=== PATIENT | female | born 1950 | race African-American/Black ===

== ENCOUNTER 2017-01-30 09:39 | Outpatient (CLI) | payer MEDICARE, MEDICAID ==
--- OUTSIDE RECORDS SUMMARY | 2017-01-30 09:56 | XMS | Clinical Summary ---
:1950 Author Organization [facility] Address [address] [place] [phone] Phone Care Team Providers Name Role Phone Asked, None Primary Care Provider Unavailable Allergies Not on File Current Medications Not on file Active Problems Not on file Social History Tobacco Use Types Packs/Day Years Used Date Never Assessed Sex Assigned at Date Recorded Not on file Last Filed Vital Signs Not on file Plan of Treatment Health Maintenance Due Date Last Done Comments COLONOSCOPY 1998 MAMMOGRAM 1998 ZOSTER VACCINE 2008 PNEUMOCOCCAL POLYSACCHARIDE VACCINE AGE 65 AND OVER 2013 PNEUMOCOCCAL-13 2013 INFLUENZA VACCINE 12/18/2016 Results Not on filefrom Last 3 Months Insurance Payer Benefit Plan / Group Subscriber ID Type Phone Address UHC MEDICARE UNITED/CARE IMPROVEMENT MCR [id number] [facility] [place] [id number] Medicare [place], [place] Home: [address] [phone] [place], [place] [phone]
--- NOTE | 2017-02-18 18:34 | MMO ---
BILATERAL SCREENING MAMMOGRAM: DATE: 01/30/2017 COMPARISON: No prior comparisons. Interpreted as a baseline exam. The exam is interpreted with the assistance of computer-aided detection. FINDINGS: There are scattered fibroglandular elements bilaterally. There is a partially visualized battery pa ck which obscures portions of the left breast from a cardiac pacing device limiting detail. Scatter ed benign parenchymal and vascular calcifications are present bilaterally. There are scar markers o verlying the right breast. No dominant mass, suspicious clustering of microcalcifications, or archi tectural distortion identified. IMPRESSION: BIRADS 2 - Benign findings. Annual screening mammography recommended. POS: CLAUDE
== END 2017-01-30 09:40 | disposition home or self-care (01) ==
LOC: SCSMAMMO 09:39
PROVIDERS: ATTEND Family Medicine
DX: Z12.31 Encounter for screening mammogram for malignant neoplasm of breast (principal)
CPT/HCPCS: 77067; G0202

== ENCOUNTER 2017-06-28 12:03 | Outpatient (CLI) | payer MEDICARE, MEDICAID ==
--- NOTE | 2017-06-28 13:44 | RAD ---
PORTABLE CHEST: HISTORY: Shortness of breath. COMPARISON: 05/23/2016 FINDINGS: AICD leads are unchanged. Lung alejandro appear clear. Heart size is upper normal and stable. No acut e finding or interval change noted. POS: H
--- NOTE | 2017-06-28 13:46 | RAD ---
RIGHT CALCANEUS TWO VIEWS: HISTORY: Injury to right heel with pain. FINDINGS: There are some posterior enthesophytes from the calcaneus. There is a small plantar enthesophyte fro m the mid calcaneus. No evidence of fracture. Prominent arterial calcification. IMPRESSION: 1. Enthesophytes from the calcaneus. 2. Minimal degenerative change at the calcaneal cuboid joint. 3. No evidence of acute fracture. POS: [facility]
== END 2017-06-28 12:04 | disposition home or self-care (01) ==
LOC: SCSRAD 12:03
PROVIDERS: ATTEND Family Medicine
DX: M79.671 Pain in right foot (principal); R50.9 Fever, unspecified; R05 Cough; M77.8 Other enthesopathies, not elsewhere classified
CPT/HCPCS: 71045; 71046

== ENCOUNTER 2017-07-06 15:34 | Inpatient (IN) | payer MEDICARE, MEDICAID ==
[2017-07-06 17:02] LABS: Hemoglobin 12.7 g/dL (12.0-16.0); Mean Corpuscular HGB CONC 31.8 g/dL (32.0-36.0); Mean Corpuscular Hemoglobin 29.8 pg (27.0-31.0); Mean Corpuscular Volume 93.8 fl (81.0-99.0); RBC Distribution Width 17.4 % (11.5-14.5); Red Blood Cell (RBC) Count 4.25 mill/uL (4.20-5.40); White Blood Cell (WBC) Count 22.8 thou/uL (4.8-10.8)
[2017-07-06 17:22] LABS: ALT (SGPT) 30 U/L (8-55); AST (SGOT) 21 U/L (5-34); Albumin 3.2 g/dL (3.4-4.8); Alkaline Phosphatase 172 U/L (40-150); Anion Gap 20 mmol/L (10-20); BUN (Urea Nitrogen) 30 mg/dL (9.8-20.1); Bilirubin, Total 2.4 mg/dL (0.2-1.2); Calc. Creatinine Clearance 0 mL/min (70-130); Calcium 9.9 mg/dL (7.8-10.44); Carbon Dioxide 24 mmol/L (23-31); Chloride 91 mmol/L (98-107); Estimated GFR-MDRD 11; Globulin 3.3 g/dL (2.4-3.5); Glucose 482 mg/dL (80-115); Potassium 3.2 mmol/L (3.5-5.1); Protein, Total 6.5 g/dL (6.0-8.3); Sodium 132 mmol/L (136-145)
[2017-07-06 17:23] LABS: Anisocytosis SLIGHT = 6-15 cells (100X) (0-5/hpf); Band 8 % (5-11); Hypochromia SLIGHT = 6-15 cells (100X) (0-5/hpf); Lymphocytes 2 % (21-51); MDiff Complete? YES; Mean Platelet Volume 10.6 fL (7.4-10.4); Monocytes 1 % (0-10); Neutrophil 89 % (42-75); PLT Morphology Comment Appears Decreased; Platelet Count 70 thou/uL (130-400); Polychromasia SLIGHT = 2-3 cells (100X) (0-2/hpf)
[2017-07-06 18:01] LABS: Magnesium 2.1 mg/dL (1.6-2.6)
[2017-07-06] MEDS ORDERED: Piperacillin/Tazobactam 3.375 GM in Sodium Chloride 0.9% 100 ML IVPB ONE (20:15)
--- NOTE | 2017-07-06 20:31 | RAD ---
FRONTAL VIEW CHEST: 07/06/17 COMPARISON: 06/28/17 INDICATION: Fever, chills, chronic wounds and pain. FINDINGS: There is enlargement of the cardiac silhouette and pulmonary vasculature. Cardiac pacing device is ag ain seen which does obscure portions of the left lung base. Otherwise no significant interval change. IMPRESSION: Findings indicate CHF. Correlate clinically. POS: CLAUDE
[2017-07-06 20:40] LABS: Bilirubin Moderate (Negative); Clarity TURBID (Clear); Glucose, Urine (Dipstick) Negative (Negative); Leukocyte Large (Negative); Nitrite Positive (Negative); Protein, Urine (Dipstick) 100 mg/dL (Neg-Trace); Specific Gravity, Urine 1.023 (1.002-1.036); pH, Urine 5.5 (5.0-9.0)
[2017-07-06 20:41] LABS: Bacteria/HPF 4+ HPF (None Seen)
[2017-07-06 20:42] LABS: Pathc Cast-AUWi Flag 37.79 (0-2.49); Yeast-AUWi Flag 2737.5 (0-25.0)
[2017-07-06 20:46] LABS: Blood, Urine Small (Negative); Hyaline Casts/LPF 0-3 HYALINE CAST LPF (0-3 Hyaline); RBC/HPF 0-3 HPF (0-3); Yeast-All Forms 4+ HPF (None Seen)
[2017-07-06] MEDS ORDERED: Dextrose 5% in Water 1,000 ML IV PRN (21:17)
[2017-07-06] MEDS ORDERED: Dextrose 50% Abboject 50 ML SYRINGE SLOW IVP PRN (21:17)
--- NOTE | 2017-07-06 21:54 | HP ---
CHIEF COMPLAINT: Lower extremity ulcers which are chronic and worsened. HISTORY OF PRESENT ILLNESS: Patient is a 66-year-old female who presents with worsening chronic leg wounds with increased pain over the last several days. Patient has been seen by Wound Care and has b een getting regular care for her chronic wounds. She states that over the last several days, her leg pain has gotten worse. She states she might have been feverish, but was unsure. No chills. Otherw ise, she states that her blood sugar has been elevated since this has gotten worse. PAST MEDICAL HISTORY: Patient is significant for type 2 diabetes, congestive heart failure, unspecif ied arrhythmia as well as chronic renal failure on hemodialysis Saturday, Saturday, Saturday; peripheral vascular disease. PAST SURGICAL HISTORY: Patient has had prior cholecystectomy, right arm shunt for dialysis as well a s pacemaker defibrillator placed and a prior as well as left ring finger surgery. SOCIAL HISTORY: Negative tobacco or alcohol use. REVIEW OF SYSTEMS: Please see HPI. Rest of 14-point review of system is negative. FAMILY HISTORY: Reviewed and noncontributory. MEDICATIONS: Patient is currently on allopurinol, Synthroid, Plavix, simvastatin, tramadol, folic ac id, insulin 70/30, Pepcid, albuterol, Renvela, and midodrine. LABORATORY AND X-RAY DATA: CBC, white count was 22.8, H&H 12 and 39 with platelet of 70. Sodium is 132, potassium 3.2, chloride 91, BUN 30, creatinine 4.6. UA showed large amount of leukocyte esteras e, nitrite positive. Patient's chest x-ray did not show any infiltrates. PHYSICAL EXAMINATION: VITAL SIGNS: Blood pressure 113/98, pulse 89, respirations 20. Patient satting 96% on room air. GENERAL: Patient is awake, alert, and oriented x3 in no acute distress. HEENT: Pupils round and react to light and accommodation. Extraocular muscles intact. TMs clear. No erythema in throat. NECK: No JVD, no lymphadenopathy. CARDIOVASCULAR: Regular rate and rhythm. LUNGS: Clear to auscultation bilaterally. ABDOMEN: Positive bowel sounds. Soft, nontender, nondistended. EXTREMITIES: No clubbing, cyanosis. Mild edema with ulcers noted bilaterally with tender to palpati on. NEUROLOGIC: Difficult to assess erythema due to skin color. ASSESSMENT AND PLAN: 1. Chronic lower extremity ulcers from diabetes and peripheral vascular disease, possible infection. Continue with pain control. Continue with IV antibiotics. Currently IV access is an issue and inq uiring about PICC line placement and then will continue on Zosyn and vancomycin. 2. Type 2 diabetes. Continue on insulin sliding scale for now. Continue on renal diabetic diet. 3. Hypothyroidism. Continue with Synthroid. 4. Cardiac issues. Continue to monitor. 5. Code status: Patient is FULL CODE.
[2017-07-06] MEDS ORDERED: Lidocaine 2% PF 5 ML VIAL ONE (22:03)
[2017-07-06] MEDS ORDERED: Vancomycin HCl 1 GM in Premix Bag 1 BAG IVPB SCH (23:45)
[2017-07-06] MEDS ORDERED: Vancomycin HCl 1.25 GM in Sodium Chloride 0.9% 250 ML 250 ML IVPB SCH (23:45)
[2017-07-06] MEDS ORDERED: Vancomycin HCl 750 MG in Sodium Chloride 0.9% 250 ML 250 ML IVPB SCH (23:45)
[2017-07-06] MEDS ORDERED: Vancomycin HCl 500 MG in Sodium Chloride 0.9% 100 ML IVPB SCH (23:45)
[2017-07-06] MEDS ORDERED: HOLD VANCOMYCIN FOR LEVEL >20 FS SCH (23:45)
[2017-07-06] MEDS ORDERED: Vancomycin HCl 1.5 GM in Sodium Chloride 0.9% 250 ML 300 ML IVPB SCH (23:45)
[2017-07-06] MEDS ORDERED: TAZOBACTAM IVPB PRN (23:46)
[2017-07-06] MEDS ORDERED: VANCOMYCIN IVPB PRN (23:46)
[2017-07-06] MEDS ORDERED: PIPERACILLIN IVPB PRN (23:46)
[2017-07-06] MEDS ORDERED: Piperacillin/Tazobactam 3.375 GM in Sodium Chloride 0.9% 100 ML IVPB SCH (23:59)
[2017-07-07] MEDS: HumaLOG 300 UNITS/3 ML VIAL SC PRN ×3 (00:38→12:11)
[2017-07-07] MEDS: Levothyroxine Sodium 100 MCG TAB PO SCH (05:19)
[2017-07-07] MEDS ORDERED: Dextrose 50% Abboject 50 ML SYRINGE SLOW IVP PRN (07:55)
[2017-07-07] MEDS ORDERED: Dextrose 5% in Water 1,000 ML IV PRN (07:55)
[2017-07-07] MEDS: Insulin Detemir 100 UNITS/ML 10 UNITS in Pre-Filled Syringe 1 EACH SC SCH ×2 (10:05→20:44)
[2017-07-07] MEDS: Sevelamer Carbonate 800 MG TAB PO SCH ×3 (10:06→18:59)
[2017-07-07] MEDS: Famotidine 20 MG TAB PO SCH (10:06)
[2017-07-07] MEDS: Enoxaparin Sodium 30 MG/0.3 ML SYRINGE SC SCH (10:06)
[2017-07-07 10:28] LABS: Anion Gap 17 mmol/L (10-20); BUN (Urea Nitrogen) 35 mg/dL (9.8-20.1); Calc. Creatinine Clearance 15 mL/min (70-130); Calcium 10.2 mg/dL (7.8-10.44); Carbon Dioxide 28 mmol/L (23-31); Chloride 92 mmol/L (98-107); Estimated GFR-MDRD 10; Glucose 202 mg/dL (80-115); Sodium 134 mmol/L (136-145)
[2017-07-07 10:30] LABS: Potassium 2.9 mmol/L (3.5-5.1)
[2017-07-07 10:31] LABS: Band 5 % (5-11); Hemoglobin 12.1 g/dL (12.0-16.0); Lymphocytes 4 % (21-51); MDiff Complete? YES; Mean Corpuscular HGB CONC 31.3 g/dL (32.0-36.0); Mean Corpuscular Hemoglobin 29.3 pg (27.0-31.0); Mean Corpuscular Volume 93.8 fl (81.0-99.0); Mean Platelet Volume 10.4 fL (7.4-10.4); Monocytes 3 % (0-10); Neutrophil 88 % (42-75); PLT Morphology Comment Appears Decreased; Platelet Count 44 thou/uL (130-400); RBC Distribution Width 17.2 % (11.5-14.5); Red Blood Cell (RBC) Count 4.13 mill/uL (4.20-5.40); White Blood Cell (WBC) Count 27.2 thou/uL (4.8-10.8)
[2017-07-07] MEDS ORDERED: Potassium Chloride 20 MEQ TAB PO SCH ×2 (11:00→17:00)
--- NOTE | 2017-07-07 11:03 | CON ---
DATE OF CONSULTATION: 07/07/2017 NEPHROLOGY CONSULTATION REASON FOR CONSULTATION: End-stage renal disease, on hemodialysis Saturday, Saturday, Saturday. HISTORY OF PRESENT ILLNESS: This is a very pleasant 66-year-old female who presented to the hospital for lower extremity ulcer and leg wound. The patient has a history of diabetes, denies any nausea, vomiting or chest pain. The patient tolerates dialysis Saturday, Saturday, and Saturday as well. PAST MEDICAL HISTORY: Diabetes mellitus, congestive heart failure, arrhythmia, peripheral vascular d isease, history of cholecystectomy, right AV fistula, defibrillator, , and finger surgery. SOCIAL HISTORY: No alcohol or drug use. FAMILY HISTORY: Negative for ESRD. REVIEW OF SYSTEMS: A 15-point review of systems was performed and negative except positives noted ab ove. General: Weakness-. Head: Headache-. Neck: No swelling or lumps. Nose: No epistaxis or d ischarge. Eyes: No diplopia or pain. Respiratory: Dyspnea-. Cardiovascular: Chest pain-. Gastr ointestinal: Nausea-. Genitourinary/Gynecology: Hematuria-. Musculoskeletal: No joint pain. Mable ropsychiatic Systems: No suicidal ideation. No ideation. Skin: Denies any rash or ulcer. Constit utional: No fever or chills. HOME MEDICATIONS: List reviewed. HOSPITAL MEDICATIONS: List reviewed. PHYSICAL EXAMINATION: GENERAL: Patient is awake, alert. VITAL SIGNS: Afebrile, pulse 69, breathing at 16, blood pressure 113/98. HEAD/NECK: Normocephalic. Atraumatic. EYES: EOMI. No deformity. EARS: Clear. No ulcers. NOSE: Intact. No lesions. MOUTH: Clear. No discharge. THROAT: Clear. No exudate. LUNGS: Clear. No crackles. CARDIAC: S1, S2. No rub. ABDOMEN: Benign. BS+. GENITALIA/RECTUM: Hernandez absent. BACK/EXTREMITIES: Edema 0+ Ulcer- NEUROLOGICAL: Alert and motor intact. SKIN: Rash- Bruise- LYMPHATICS: Edema- Ulcer- LABORATORY DATA: Show hemoglobin 12.7, potassium 3.6. ASSESSMENT AND RECOMMENDATIONS: 1. Stage 6 chronic kidney disease. Continue hemodialysis per schedule. 3. Hypertension, stable. 4. Anemia, stable. 5. Medications based on glomerular filtration rate are appropriate. 6. Hypokalemia. Recommend high potassium diet.
[2017-07-07] MEDS: Piperacillin/Tazobactam 2.25 GM in Sodium Chloride 0.9% 100 ML IVPB SCH (11:14)
--- NOTE | 2017-07-07 16:55 | PDOC.PN ---
- Subjective Encounter Start Date: 07/07/17 Encounter Start Time: 10:55 - Objective Resuscitation Status: Resuscitation Status FULL:Full Resuscitation Vital Signs & Weight: Vital Signs (12 hours) Temp Pulse Resp BP Pulse Ox 07/07/17 10:47 97.5 F L 82 16 102/72 100 07/07/17 07:55 97.6 F 80 18 112/73 95 Weight Weight 206 lb 6.4 oz I&O: 07/06/17 07/07/17 07/08/17 06:59 06:59 06:59 Intake Total 985 Balance 985 Result Diagrams: 07/07/17 10:00 07/07/17 10:00 Additional Labs: Accuchecks 07/07/17 07/07/17 07/07/17 11:08 05:08 00:14 POC Glucose 172 H 413 H 429 H Phys Exam - Physical Examination HEENT: PERRLA, moist MMs Neck: no nodes Respiratory: no wheezing Cardiovascular: RRR, no significant murmur Gastrointestinal: soft, non-tender Musculoskeletal: edema present (lower ext, right foot appears more dark than left, dressing to link and right heel area) Neurological: non-focal, normal sensation Dx/Plan (1) Sepsis Code(s): A41.9 - SEPSIS, UNSPECIFIED ORGANISM Status: Acute Plan: will continue iv zosyn and vanco, blood cx no growth so far (2) Cellulitis Code(s): L03.90 - CELLULITIS, UNSPECIFIED Status: Acute Plan: wound care to change pt's link dressing. i was unable to see it today. will look at the wound in am (3) Leukocytosis Code(s): D72.829 - ELEVATED WHITE BLOOD CELL COUNT, UNSPECIFIED Status: Acute Plan: continue to monitor, if persist will need MRi to rule out any osteo (4) Hypokalemia Code(s): E87.6 - HYPOKALEMIA Status: Acute Plan: will replace and check k later today (5) ESRD (end stage renal disease) Code(s): N18.6 - END STAGE RENAL DISEASE Status: Acute (6) ESRD (end stage renal disease) on dialysis Code(s): N18.6 - END STAGE RENAL DISEASE; Z99.2 - DEPENDENCE ON RENAL DIALYSIS Status: Acute Plan: per nephrology - Plan * .
[2017-07-07] MEDS ORDERED: Potassium Chloride 20 MEQ/100 ML PREMIX BAG IVPB SCH (17:30)
[2017-07-07] MEDS: Amiodarone 200 MG TAB PO SCH (20:44)
[2017-07-07] MEDS: Simvastatin 5 MG TAB PO SCH (20:44)
[2017-07-07 22:35] LABS: Anion Gap 19 mmol/L (10-20); BUN (Urea Nitrogen) 40 mg/dL (9.8-20.1); Calc. Creatinine Clearance 15 mL/min (70-130); Calcium 9.9 mg/dL (7.8-10.44); Carbon Dioxide 28 mmol/L (23-31); Chloride 93 mmol/L (98-107); Estimated GFR-MDRD 9; Glucose 82 mg/dL (80-115); Potassium 3.6 mmol/L (3.5-5.1); Sodium 136 mmol/L (136-145)
[2017-07-08] MEDS: Piperacillin/Tazobactam 2.25 GM in Sodium Chloride 0.9% 100 ML IVPB SCH ×3 (00:59→22:48)
[2017-07-08 04:53] LABS: Vancomycin, Random 15.3 ug/mL (See Comment)
[2017-07-08 04:54] LABS: Anion Gap 20 mmol/L (10-20); BUN (Urea Nitrogen) 42 mg/dL (9.8-20.1); Calc. Creatinine Clearance 14 mL/min (70-130); Calcium 9.9 mg/dL (7.8-10.44); Carbon Dioxide 25 mmol/L (23-31); Chloride 93 mmol/L (98-107); Estimated GFR-MDRD 9; Potassium 3.8 mmol/L (3.5-5.1); Sodium 134 mmol/L (136-145)
[2017-07-08 04:59] LABS: Band 12 % (5-11); Hemoglobin 12.1 g/dL (12.0-16.0); Lymphocytes 1 % (21-51); MDiff Complete? YES; Mean Corpuscular HGB CONC 31.7 g/dL (32.0-36.0); Mean Corpuscular Hemoglobin 29.7 pg (27.0-31.0); Mean Corpuscular Volume 93.9 fl (81.0-99.0); Mean Platelet Volume 12.3 fL (7.4-10.4); Monocytes 3 % (0-10); Neutrophil 84 % (42-75); PLT Morphology Comment Appears Decreased; Platelet Count 38 thou/uL (130-400); RBC Distribution Width 17.1 % (11.5-14.5); Red Blood Cell (RBC) Count 4.08 mill/uL (4.20-5.40); White Blood Cell (WBC) Count 21.6 thou/uL (4.8-10.8)
[2017-07-08 05:01] LABS: Glucose 57 mg/dL (80-115)
[2017-07-08] MEDS: Levothyroxine Sodium 100 MCG TAB PO SCH (06:39)
[2017-07-08] MEDS: Insulin Detemir 100 UNITS/ML 10 UNITS in Pre-Filled Syringe 1 EACH SC SCH ×2 (07:15→22:52)
[2017-07-08] MEDS: Sevelamer Carbonate 800 MG TAB PO SCH ×4 (08:14→16:22)
[2017-07-08] MEDS: Famotidine 20 MG TAB PO SCH ×2 (08:15→08:22)
[2017-07-08] MEDS: Enoxaparin Sodium 30 MG/0.3 ML SYRINGE SC SCH (08:19)
--- NOTE | 2017-07-08 11:07 | RAD ---
RIGHT LEG 2 VIEWS: HISTORY: Abernathy ulcers, right leg pain. FINDINGS: The right tibia and fibula are intact. No bony destruction or periosteal reaciton is seen. Vascular calcifications are present. IMPRESSION: No radiographic evidence of osteomyelitis. POS: CLAUDEH
--- NOTE | 2017-07-08 11:08 | RAD ---
LEFT LEG TWO VIEWS: HISTORY: Abernathy ulcers. Left leg pain. FINDINGS: The left tibia and fibula are intact. Vascular calcifications are present. No bony destruction or p eriosteal reaction is identified. IMPRESSION: No radiographic evidence of osteomyelitis. POS: RUDI
[2017-07-08 14:12] LABS: HBSAg Index 0.21 S/CO (0-0.99); Hep B Surf Ag Non-Reactive S/CO (NonReactive)
[2017-07-08] MEDS ORDERED: diphenhydrAMINE 25 MG CAP PO PRN (15:16)
--- NOTE | 2017-07-08 17:27 | PRG ---
DATE OF SERVICE: 07/08/2017 SUBJECTIVE: Patient was seen and examined at bedside and overnight events noted. Patient denies any shortness of breath or chest pain or palpitation. No history of nausea or vomiting or diarrhea or f ever or chills or cramps. OBJECTIVE: GENERAL: This is an obese female in no apparent distress. VITAL SIGNS: Temperature 97.6, pulse 94, respiratory rate 18, blood pressure 94/65. HEENT: Atraumatic, normocephalic. Oral mucosa is moist. NECK: Supple. CARDIOVASCULAR: S1, S2 heard. Rate and rhythm regular. RESPIRATORY: Clear to auscultation. GASTROINTESTINAL: Abdomen is soft. MUSCULOSKELETAL: No tenderness. No edema. DERMATOLOGIC: No skin rash. NEUROLOGIC: Alert and awake and oriented x3. No focal neurologic deficits. Moving all the extremiti es. PSYCHIATRIC: Mood and affect normal. LABORATORY DATA: Potassium is 3.8, BUN 42, creatinine is 5.5. ASSESSMENT AND PLAN: 1. End-stage renal disease, continue on hemodialysis as tolerated. 2. Chronic nonhealing leg wounds. Follow with ID. I agree with MRI and further vascular evaluation . 3. Hypertension, stable. 4. Anemia. 5. Hyperkalemia, stable. Plan is to continue on dialysis as tolerated. The patient was seen during dialysis today and is tole rating well. We will follow up along with ID for further recommendations. Continue antibiotics as t olerated.
--- NOTE | 2017-07-08 18:30 | PDOC.PN ---
- Subjective Encounter Start Date: 07/08/17 Encounter Start Time: 09:00 Subjective: pt up in bed has pain to her right and left foot - Objective Resuscitation Status: Resuscitation Status FULL:Full Resuscitation Vital Signs & Weight: Vital Signs (12 hours) Temp Pulse Resp BP Pulse Ox 07/08/17 13:43 97.6 F 94 20 94/65 93 L 07/08/17 09:37 94 16 93 L 07/08/17 08:00 97.4 F L 94 16 122/72 93 L 07/08/17 06:39 97 18 93 L Weight Admit Weight 203 lb 9.6 oz Weight 205 lb 12.8 oz I&O: 07/07/17 07/08/17 07/09/17 06:59 06:59 06:59 Intake Total 985 1190 1000 Output Total 0 Balance 985 1190 1000 Result Diagrams: 07/08/17 03:39 07/08/17 03:39 Additional Labs: Accuchecks 07/08/17 07/08/17 07/08/17 11:59 10:09 06:39 POC Glucose 204 H 201 H 134 H 07/08/17 07/07/17 07/07/17 04:59 21:11 19:47 POC Glucose 45 L* 77 67 L Phys Exam - Physical Examination HEENT: PERRLA, moist MMs Neck: no nodes Respiratory: no wheezing, no rales Cardiovascular: RRR, no significant murmur Musculoskeletal: edema present (pt has edema to both lower ext) Psychiatric: normal affect Skin: no rash (purlent drainage from right heel, healed ulcer to right link, left posterior link looks like eschar with skin loss. ) Dx/Plan (1) Sepsis Code(s): A41.9 - SEPSIS, UNSPECIFIED ORGANISM Status: Acute Plan: pt's iv access was off and had not received abx overnight. she received abx in dialysis. she now has a peripheral line. pt is on vanco and zosyn. id is consulted. (2) Cellulitis Code(s): L03.90 - CELLULITIS, UNSPECIFIED Status: Acute Plan: pt has significant pressure wounds vs diabetic ulcers. foul smelling drainage from right heel wound. wound care on board. will get arterial Doppler to check for flow. (3) Leukocytosis Code(s): D72.829 - ELEVATED WHITE BLOOD CELL COUNT, UNSPECIFIED Status: Acute Plan: still persist. pt may need Mri to rule out osteo (4) Hypokalemia Code(s): E87.6 - HYPOKALEMIA Status: Acute (5) ESRD (end stage renal disease) Code(s): N18.6 - END STAGE RENAL DISEASE Status: Acute Plan: per nephrology (6) ESRD (end stage renal disease) on dialysis Code(s): N18.6 - END STAGE RENAL DISEASE; Z99.2 - DEPENDENCE ON RENAL DIALYSIS Status: Acute - Plan * .
[2017-07-08] MEDS: Amiodarone 200 MG TAB PO SCH (22:52)
[2017-07-08] MEDS: Simvastatin 5 MG TAB PO SCH (22:53)
[2017-07-09] MEDS: Levothyroxine Sodium 100 MCG TAB PO SCH (06:26)
[2017-07-09] MEDS: HumaLOG 300 UNITS/3 ML VIAL SC PRN (06:42)
[2017-07-09] MEDS: Acetaminophen 325 MG TAB PO PRN (08:17)
[2017-07-09] MEDS: Enoxaparin Sodium 30 MG/0.3 ML SYRINGE SC SCH (08:17)
[2017-07-09] MEDS: Sevelamer Carbonate 800 MG TAB PO SCH ×3 (08:17→16:55)
[2017-07-09] MEDS: Insulin Detemir 100 UNITS/ML 10 UNITS in Pre-Filled Syringe 1 EACH SC SCH ×2 (08:25→21:45)
[2017-07-09] MEDS: Famotidine 20 MG TAB PO SCH (08:25)
[2017-07-09 10:10] LABS: Hemoglobin 11.4 g/dL (12.0-16.0); Mean Corpuscular HGB CONC 31.2 g/dL (32.0-36.0); Mean Corpuscular Hemoglobin 29.3 pg (27.0-31.0); Mean Corpuscular Volume 93.8 fl (81.0-99.0); Mean Platelet Volume 12.1 fL (7.4-10.4); Platelet Count 33 thou/uL (130-400); RBC Distribution Width 17.1 % (11.5-14.5); Red Blood Cell (RBC) Count 3.89 mill/uL (4.20-5.40); White Blood Cell (WBC) Count 21.6 thou/uL (4.8-10.8)
[2017-07-09 10:23] LABS: Anion Gap 18 mmol/L (10-20); BUN (Urea Nitrogen) 27 mg/dL (9.8-20.1); Calc. Creatinine Clearance 19 mL/min (70-130); Calcium 9.4 mg/dL (7.8-10.44); Carbon Dioxide 22 mmol/L (23-31); Chloride 98 mmol/L (98-107); Estimated GFR-MDRD 13; Glucose 230 mg/dL (80-115); Potassium 3.9 mmol/L (3.5-5.1); Sodium 134 mmol/L (136-145)
[2017-07-09 10:24] LABS: Hypochromia SLIGHT = 6-15 cells (100X) (0-5/hpf); MDiff Complete? YES; PLT Morphology Comment Appears Decreased; Polychromasia SLIGHT = 2-3 cells (100X) (0-2/hpf); Target Cells SLIGHT = 2-5 cells (100X) (0-1/hpf)
[2017-07-09] MEDS: Piperacillin/Tazobactam 2.25 GM in Sodium Chloride 0.9% 100 ML IVPB SCH ×2 (12:30→23:53)
[2017-07-09] MEDS: oxyCODONE 5 MG TAB PO PRN (12:44)
--- NOTE | 2017-07-09 14:26 | PRG ---
DATE OF SERVICE: 07/09/2017 SUBJECTIVE: Patient was seen and examined at bedside and overnight events noted. Patient denies any shortness of breath or chest pain or palpitation. No history of nausea or vomitin g or diarrhea or fever or chills or cramps. OBJECTIVE: GENERAL: This is a well-built female, female, in no apparent distress. VITAL SIGNS: Temperature 98.3, pulse 92, respiratory rate 16, blood pressure 104/71. HEENT: Atraumatic, normocephalic. Oral mucosa is moist NECK: Supple. CARDIOVASCULAR: S1 and S2 heard. Rate and rhythm regular. RESPIRATORY: Clear to auscultation. GASTROINTESTINAL: Abdomen is soft. MUSCULOSKELETAL: No tenderness. No edema. DERMATOLOGIC: No skin rash. NEUROLOGIC: Alert and awake and oriented X3, No focal neurologic deficits. Moving all the extremitie s. PSYCHIATRIC: Mood and affect normal. LABORATORY DATA: Potassium is 3.9, BUN 27, creatinine is 4.0. ASSESSMENT AND PLAN: 1. End-stage renal disease, continue on hemodialysis as tolerated, Saturday, Saturday, and Saturday. 2. Chronic nonhealing wounds. 3. Hypertension. 4. Anemia. 5. Hyperkalemia, stable. Plan is to continue dialysis Saturday, Saturday, and Saturday. Follow up with ID, continue antibiotics. White count seems to be better today. We will follow.
--- NOTE | 2017-07-09 15:42 | PDOC.PN ---
- Subjective Encounter Start Date: 07/09/17 Encounter Start Time: 10:00 Subjective: pt up in bed no complains - Objective Resuscitation Status: Resuscitation Status FULL:Full Resuscitation Vital Signs & Weight: Vital Signs (12 hours) Temp Pulse Resp BP Pulse Ox 07/09/17 14:03 92 16 92 L 07/09/17 08:00 98.3 F 92 16 104/71 95 07/09/17 06:26 72 16 Weight Admit Weight 203 lb 9.6 oz Weight 203 lb 0.732 oz I&O: 07/08/17 07/09/17 07/10/17 06:59 06:59 06:59 Intake Total 1190 1200 Output Total 0 Balance 1190 1200 Result Diagrams: 07/09/17 09:58 07/09/17 09:58 Additional Labs: Accuchecks 07/09/17 07/09/17 07/08/17 11:24 04:55 20:23 POC Glucose 245 H 253 H 142 H Phys Exam - Physical Examination HEENT: PERRLA, moist MMs Neck: no nodes Respiratory: no wheezing, no rales Cardiovascular: RRR, no significant murmur Gastrointestinal: soft, non-tender Musculoskeletal: edema present (right foot is dark with diminished pulses, very painful to touch, right heel has continue drainage of foul smelling purlent discharge) Neurological: non-focal, normal sensation Dx/Plan (1) Sepsis Code(s): A41.9 - SEPSIS, UNSPECIFIED ORGANISM Status: Acute Plan: most likely form her wounds. will get MRI of her right foot. pt most likely has significant vascular disease. possible will need debridement of the wound also since she continues to have persistent leukocytes. pt on vanco and zosyn (2) Cellulitis Code(s): L03.90 - CELLULITIS, UNSPECIFIED Status: Acute Plan: pt has multiple wounds. will continue abx, (3) Leukocytosis Code(s): D72.829 - ELEVATED WHITE BLOOD CELL COUNT, UNSPECIFIED Status: Acute Plan: persistent possible osteo? will get MRI (4) Hypokalemia Code(s): E87.6 - HYPOKALEMIA Status: Acute Plan: stable (5) ESRD (end stage renal disease) Code(s): N18.6 - END STAGE RENAL DISEASE Status: Acute Plan: dialysis (6) ESRD (end stage renal disease) on dialysis Code(s): N18.6 - END STAGE RENAL DISEASE; Z99.2 - DEPENDENCE ON RENAL DIALYSIS Status: Acute - Plan * .
--- NOTE | 2017-07-09 19:26 | CON ---
DATE OF ADMISSION: 07/06/2017 DATE OF CONSULTATION: 07/06/2017 HISTORY OF PRESENT ILLNESS: Ms. Young is a 66-year-old woman who has multiple chronic medical probl ems including end-stage renal disease on hemodialysis, chronic lower extremity ulcerations, diabetes mellitus, and congestive heart failure. She presented with worsening heel ulcerations. The right le g is worse than the left. On entering the room, there is a foul odor to the whole room. She has had fever at home. Her white blood cell count is currently 21.6, which has not changed since admission. Reports through staff that she had a recent angioplasty somewhere -- it was not here in this instit ution and she is continue to have slowly festering heel wounds. Current temperature is 98.3. She richardson s been on vancomycin and Zosyn since admission. PAST MEDICAL HISTORY: 1. End-stage renal disease on hemodialysis. 2. Peripheral vascular disease. 3. Diabetes mellitus. 4. Congestive heart failure. 5. History of arrhythmia. PAST SURGICAL HISTORY: 1. Cholecystectomy. 2. Right arm fistula. 3. Pacemaker/defibrillator placement. 4. . 5. Left hand surgery. SOCIAL HISTORY: She does not use tobacco. REVIEW OF SYSTEMS: Not performed due to the patient's mental status. PHYSICAL EXAMINATION: GENERAL: This is a morbidly obese woman, resting, sitting at approximately 45 degrees in bed. My at tempts at laying her flat were unsuccessful as she immediately stated that she got short of breath wh en I tried to lay her down. LUNGS: Fairly clear. HEART: Rhythm is regular without significant murmur. ABDOMEN: Obese with a large panniculus. VASCULAR: I cannot palpate any pulses in her groin or popliteal arteries. She has a good bilateral Doppler signal in her popliteal arteries. Dorsalis pedis and posterior tibial arteries are not doppl erable. She has healed ulcerations bilaterally that are dressed with a foul odor. DIAGNOSTIC STUDIES: I have reviewed her plain film x-ray showing a calcified arterial tree that you can trace the whole arterial tree without difficulty. ASSESSMENT AND PLAN: This unfortunate 66-year-old woman with diabetes, end-stage renal disease and p eripheral vascular disease with ulcerations of both heels. I do not feel that she has any hopes that reconstruction with either endovascularly or with open surgical intervention of her peripheral vascu lar disease. She more than likely will come to amputation.
[2017-07-09] MEDS: Simvastatin 5 MG TAB PO SCH (21:45)
[2017-07-09] MEDS: Amiodarone 200 MG TAB PO SCH (21:45)
[2017-07-10] MEDS: Acetaminophen 325 MG TAB PO PRN ×2 (03:57→11:41)
[2017-07-10] MEDS: Levothyroxine Sodium 100 MCG TAB PO SCH (06:01)
[2017-07-10 06:13] LABS: Anion Gap 24 mmol/L (10-20); BUN (Urea Nitrogen) 35 mg/dL (9.8-20.1); Calc. Creatinine Clearance 17 mL/min (70-130); Calcium 9.7 mg/dL (7.8-10.44); Carbon Dioxide 19 mmol/L (23-31); Chloride 96 mmol/L (98-107); Estimated GFR-MDRD 11; Glucose 228 mg/dL (80-115); Potassium 4.4 mmol/L (3.5-5.1); Sodium 135 mmol/L (136-145)
[2017-07-10 06:38] LABS: Anisocytosis SLIGHT = 6-15 cells (100X) (0-5/hpf); Band 2 % (5-11); Hemoglobin 11.6 g/dL (12.0-16.0); Lymphocytes 4 % (21-51); MDiff Complete? YES; Mean Corpuscular HGB CONC 30.7 g/dL (32.0-36.0); Mean Corpuscular Hemoglobin 29.2 pg (27.0-31.0); Mean Corpuscular Volume 95.3 fl (81.0-99.0); Mean Platelet Volume 12.5 fL (7.4-10.4); Monocytes 2 % (0-10); Neutrophil 92 % (42-75); PLT Morphology Comment Appears Decreased; Platelet Count 32 thou/uL (130-400); RBC Distribution Width 17.3 % (11.5-14.5); Red Blood Cell (RBC) Count 3.97 mill/uL (4.20-5.40); Target Cells SLIGHT = 2-5 cells (100X) (0-1/hpf); White Blood Cell (WBC) Count 19.5 thou/uL (4.8-10.8)
[2017-07-10] MEDS: ALPRAZolam 0.5 MG TAB PO SCH (08:34)
[2017-07-10] MEDS: Famotidine 20 MG TAB PO SCH (08:34)
[2017-07-10] MEDS: Sevelamer Carbonate 800 MG TAB PO SCH ×3 (08:41→20:51)
[2017-07-10] MEDS ORDERED: Insulin Detemir 100 UNITS/ML 15 UNITS in Pre-Filled Syringe 1 EACH SC SCH (09:00)
[2017-07-10] MEDS ORDERED: Heparin 10,000 UNITS/ 10 ML VIAL ONE (10:00)
[2017-07-10] MEDS: Insulin Detemir 100 UNITS/ML 10 UNITS in Pre-Filled Syringe 1 EACH SC SCH ×2 (11:09→20:52)
[2017-07-10] MEDS: oxyCODONE 5 MG TAB PO PRN (11:44)
--- NOTE | 2017-07-10 12:35 | RAD ---
RIGHT FOOT TWO VIEWS: History: 66-year-old female with history of heel ulcer with clinical concern for osteomyelitis. FINDINGS/IMPRESSION: Two view examination of the foot demonstrates some calcaneal plantar and Achilles enthesophytes. Exte nsive vascular calcifications. Minimal diffuse soft tissue swelling. No evidence for acute fracture o r dislocation. No evidence for overt bony erosion or destructive changes. If there is clinical concer n for osteomyelitis, consider follow up MRI for study further assessment. POS: [facility]UD[facility]
[2017-07-10 13:15] LABS: Vancomycin, Random 11.8 ug/mL (See Comment)
--- NOTE | 2017-07-10 13:49 | PDOC.PN ---
- Subjective Encounter Start Date: 07/10/17 Encounter Start Time: 10:45 Subjective: pt up in bed still has a lot of pain to her lower ext - Objective Resuscitation Status: Resuscitation Status FULL:Full Resuscitation Vital Signs & Weight: Vital Signs (12 hours) Temp Pulse Resp BP Pulse Ox 07/10/17 10:27 93 14 07/10/17 08:00 97.6 F 93 22 H 98 07/10/17 07:16 97.6 F 93 22 H 132/87 98 07/10/17 07:06 80 18 07/10/17 02:19 88 18 95 Weight Admit Weight 203 lb 9.6 oz Weight 204 lb 5.896 oz I&O: 07/09/17 07/10/17 07/11/17 06:59 06:59 06:59 Intake Total 1200 1330 Balance 1200 1330 Result Diagrams: 07/10/17 04:35 07/10/17 04:35 Additional Labs: Accuchecks 07/10/17 07/10/17 07/09/17 11:31 04:38 19:34 POC Glucose 312 H 243 H 201 H 07/09/17 15:51 POC Glucose 183 H Phys Exam - Physical Examination HEENT: PERRLA, moist MMs Neck: no nodes Respiratory: no wheezing (mild rales to bases) Cardiovascular: RRR, no significant murmur Gastrointestinal: soft, non-tender Musculoskeletal: edema present (right foot appears dark, warm but very painful. she also has other ulcers) Neurological: non-focal Skin: no rash Dx/Plan (1) Sepsis Code(s): A41.9 - SEPSIS, UNSPECIFIED ORGANISM Status: Acute Plan: most likely due to he lower ext cellulites. (2) Cellulitis Code(s): L03.90 - CELLULITIS, UNSPECIFIED Status: Acute Plan: pt's right foot appears dark, CV surgeon consulted no intervention possible amputation. MRI unable to perform due to pt having a AICD. xray no indication of osteo. ID on board. pt on vanco/zosyn. pt has a lot of pain will start neurontin. (3) Leukocytosis Code(s): D72.829 - ELEVATED WHITE BLOOD CELL COUNT, UNSPECIFIED Status: Acute Plan: improving slowly (4) Hypokalemia Code(s): E87.6 - HYPOKALEMIA Status: Acute Plan: resolved (5) ESRD (end stage renal disease) Code(s): N18.6 - END STAGE RENAL DISEASE Status: Acute Plan: per nephrology (6) ESRD (end stage renal disease) on dialysis Code(s): N18.6 - END STAGE RENAL DISEASE; Z99.2 - DEPENDENCE ON RENAL DIALYSIS Status: Acute (7) Thrombocytopenia Code(s): D69.6 - THROMBOCYTOPENIA, UNSPECIFIED Status: Acute Plan: low, possible due to sepsis Comment: new possbile due to sepsis. unable to put pt on dvt ppx due to low platelets. No scd due to severe leg pain. - Plan * .
--- NOTE | 2017-07-10 16:03 | ULT ---
LOWER EXTREMITY ARTERIAL EVALUATION USING DOPPLER WAVEFORM AND SEGMENTAL LIMB PRESSURES: Examination of the right leg reveals normal Doppler waveforms at the femoral and popliteal level. Th ere are no waveforms that could be done in the lower extremity below that level. Left lower extremit y demonstrates fairly normal femoral and popliteal waveforms with monophasic waveforms below the knee . This study demonstrates severe peripheral vascular disease in the left leg below the knee. Right leg could not be evaluated below the knee. POS: CLAUDE
[2017-07-10] MEDS: Piperacillin/Tazobactam 2.25 GM in Sodium Chloride 0.9% 100 ML IVPB SCH (17:59)
[2017-07-10] MEDS: Nystatin Powder 15 GM BOT TOP SCH (20:51)
[2017-07-10] MEDS: Amiodarone 200 MG TAB PO SCH (20:51)
[2017-07-10] MEDS: Simvastatin 5 MG TAB PO SCH (20:51)
[2017-07-10] MEDS ORDERED: Gabapentin 300 MG CAP PO SCH (21:00)
--- NOTE | 2017-07-10 23:51 | PRG ---
DATE OF SERVICE: 07/10/2017 SUBJECTIVE: Patient was seen and examined at bedside and overnight events noted. Patient denies shortness of breath or cramps or chest pain or palpitation. No Nausea or vomiting or diarrhea or fever or chills. PHYSICAL EXAMINATION: GENERAL: This is a well-built female in no apparent distress. VITAL SIGNS: Temperature 97.6, pulse 92, respiratory rate , blood pressure 132/87. Musculoskeletal : No tenderness, No edema HEENT: Atraumatic normocephalic Neck: Supple Cardiovascular: S1S2 heard, Rate and rhythm regular Respiratory: Clear to auscultation Gastrointestinal: Abdomen is soft Dermatologic : No skin rash Neurologic: Alert and awake and oriented X3 No focal neurologic deficits. Moving all the extremities. Psychiatric: Mood and affect normal LABORATORY DATA: Potassium is 4.4, BUN is 35, creatinine is 4.6. Hemoglobin is 11.6. ASSESSMENT AND PLAN: 1. End-stage renal disease on hemodialysis. Plan is to continue on dialysis Saturday, Saturday, and Saturday. 2. Chronic, nonhealing ulcer. Follow with ID and continue on antibiotics. 3. Leukocytosis, better. 4. Hypertension. Remove fluid with dialysis. 5. Anemia. 6. Edema, controlled. Plan is to continue on dialysis Saturday, Saturday, and Saturday as tolerated. We will follow. ADAD
[2017-07-11] MEDS: Piperacillin/Tazobactam 2.25 GM in Sodium Chloride 0.9% 100 ML IVPB SCH ×2 (05:27→17:31)
[2017-07-11] MEDS: Levothyroxine Sodium 100 MCG TAB PO SCH (05:33)
[2017-07-11 09:36] LABS: #Eosinphils 0.1 thou/uL (0.0-0.7); #Lymphocytes 1.4 thou/uL (1.20-3.40); #Monocytes 1.2 thou/uL (0.11-0.59); #Neutrophils 15.4 thou/uL (1.40-6.50); %Basophils 0.1 % (0.0-1.0); %Eosinophils 0.4 % (0.0-10.0); %Lymphocytes 7.6 % (21.0-51.0); %Monocytes 6.8 % (0.0-10.0); Hemoglobin 12.6 g/dL (12.0-16.0); Mean Corpuscular HGB CONC 32.4 g/dL (32.0-36.0); Mean Corpuscular Hemoglobin 30.2 pg (27.0-31.0); Mean Corpuscular Volume 93.4 fl (81.0-99.0); Mean Platelet Volume 11.9 fL (7.4-10.4); Platelet Count 36 thou/uL (130-400); RBC Distribution Width 17.3 % (11.5-14.5); Red Blood Cell (RBC) Count 4.16 mill/uL (4.20-5.40); White Blood Cell (WBC) Count 18.2 thou/uL (4.8-10.8)
[2017-07-11 09:46] LABS: ALT (SGPT) 29 U/L (8-55); AST (SGOT) 19 U/L (5-34); Alkaline Phosphatase 154 U/L (40-150); Anion Gap 16 mmol/L (10-20); BUN (Urea Nitrogen) 22 mg/dL (9.8-20.1); Bilirubin, Total 2.2 mg/dL (0.2-1.2); Calc. Creatinine Clearance 25 mL/min (70-130); Calcium 9.9 mg/dL (7.8-10.44); Carbon Dioxide 27 mmol/L (23-31); Chloride 97 mmol/L (98-107); Estimated GFR-MDRD 17; Globulin 3.6 g/dL (2.4-3.5); Glucose 140 mg/dL (80-115); Potassium 4.1 mmol/L (3.5-5.1); Protein, Total 6.6 g/dL (6.0-8.3); Sodium 136 mmol/L (136-145)
[2017-07-11] MEDS: Sevelamer Carbonate 800 MG TAB PO SCH ×3 (10:12→18:14)
[2017-07-11] MEDS: Famotidine 20 MG TAB PO SCH (10:13)
[2017-07-11] MEDS: Nystatin Powder 15 GM BOT TOP SCH ×2 (10:13→20:17)
[2017-07-11] MEDS: Insulin Detemir 100 UNITS/ML 10 UNITS in Pre-Filled Syringe 1 EACH SC SCH ×2 (10:13→23:02)
--- NOTE | 2017-07-11 10:37 | PDOC.PN ---
- Subjective Encounter Start Date: 07/11/17 Encounter Start Time: 09:45 Patient is seen today, was called for Code Green as pt became unresponse with hypoxia and poor mentation, Patient had Right facial droop so a CT weas Done was kamala, patient family was in room, Pt had low Blood pressure with systolic < 90 and 500ml fluid bolus was given, Patient remained altered, Discussed with Family and Daughters, explained patient baseline condition is poor from Sepsis duie to non healing leg wound and ESRD on HD and Chronic CHF with AICD, if she codes her resustation outcome will be very poor and suggested pt to be kept comfortable and DNR, family ( and Daughters) agreed to it. Time spent was 45 min with family discussion on Code status and patient care. - Objective Resuscitation Status: Resuscitation Status DNR:Do Not Resuscitate MAR Reviewed: Yes Vital Signs & Weight: Vital Signs (12 hours) Temp Pulse Resp BP Pulse Ox 07/11/17 08:00 98.4 F 93 20 110/71 98 07/11/17 07:53 97.6 F 93 18 07/11/17 01:34 93 18 96 07/11/17 00:04 93 18 98 Weight Admit Weight 203 lb 9.6 oz Weight 206 lb 12.697 oz I&O: 07/10/17 07/11/17 07/12/17 06:59 06:59 06:59 Intake Total 1330 250 Balance 1330 250 Result Diagrams: 07/11/17 09:09 07/11/17 09:09 Additional Labs: Accuchecks 07/11/17 07/10/17 07/10/17 04:39 19:42 11:31 POC Glucose 163 H 155 H 312 H Radiology Reviewed by me: Yes (discussed with radiology) Phys Exam - Physical Examination HEENT: PERRLA, moist MMs Neck: no nodes, no JVD Respiratory: wheezing present Cardiovascular: RRR, no significant murmur Gastrointestinal: soft, non-tender Musculoskeletal: no edema, pulses present (diminshed low volume) Neurological: non-focal, normal sensation Lymphatic: no nodes Skin: no rash (has icterus noticed) Dx/Plan (1) Acute respiratory failure with hypoxia Code(s): J96.01 - ACUTE RESPIRATORY FAILURE WITH HYPOXIA Status: Acute Comment: Will continue on Rebreather, continue to on nasal canula to keep Sats > 92%, No intubation, can try Bipap if worsening SOB. (2) Septic shock Code(s): A41.9 - SEPSIS, UNSPECIFIED ORGANISM; R65.21 - SEVERE SEPSIS WITH SEPTIC SHOCK Status: Acute Comment: Pt has worsening BP, start FLuid bolus now, BP responded, Will continue with IV antibiotics. (3) TIA (transient ischemic attack) Status: Acute Comment: CT head negative for intracrtneal bleed, cannot do MRi due to pacemeaker, will do neurochecks. [place] monitor, Will start pt on Aspirn , Statin. (4) Cellulitis Code(s): L03.90 - CELLULITIS, UNSPECIFIED Status: Acute Comment: continue IV antibiotics. (5) ESRD (end stage renal disease) on dialysis Code(s): N18.6 - END STAGE RENAL DISEASE; Z99.2 - DEPENDENCE ON RENAL DIALYSIS Status: Acute Comment: continueon HD as BP tolerates. (6) Thrombocytopenia Code(s): D69.6 - THROMBOCYTOPENIA, UNSPECIFIED Status: Acute Comment: new possbile due to sepsis. unable to put pt on dvt ppx due to low platelets. No scd due to severe leg pain. - Plan cont current plan of care, plan discussed w/ family, continue antibiotics, PT/OT , social services counselor, speech therapy, respiratory therapy, incentive spirometry, DVT proph w/heparin * . - Discharge Day Encounter end time: 10:40 Review of Systems - Review of Systems Constitutional: weakness, malaise. negative: fever, chills, sweats, other Other: unable to get ROS as pt is disoriented. - Medications/Allergies Allergies/Adverse Reactions: Allergies Allergy/AdvReac Type Severity Reaction Status Date / Time ciprofloxacin [From Cipro] Allergy Hives Verified 09/12/16 12:48 codeine Allergy tachycardia Verified 09/12/16 12:48 ,hallucinat ions Sulfa (Sulfonamide Allergy Hives Verified 09/12/16 12:48 Antibiotics) sulfamethoxazole Allergy Hives Verified 09/12/16 12:48 [From Bactrim] trimethoprim [From Bactrim] Allergy Hives Verified 09/12/16 12:48 Medications: Current Medications Acetaminophen (Tylenol) 650 mg PO Q4H PRN PRN Reason: Headache/Fever or Pain Last Admin: 07/10/17 11:41 Dose: 650 mg Albuterol/Ipratropium (Duoneb) 3 ml IPPB [id number] [facility] Last Admin: 07/11/17 10:07 Dose: Not Given Alprazolam (Xanax) 0.5 mg PO ASDIR [facility] Last Admin: 07/10/17 08:34 Dose: 0.5 mg Amiodarone HCl (Cordarone) 200 mg PO HS [facility] Last Admin: 07/10/17 20:51 Dose: 200 mg Aspirin (Aspirin Chewable) 81 mg PO DAILY [facility] Last Admin: 07/11/17 10:13 Dose: Not Given Dextrose/Water (Dextrose 50%) 25 gm SLOW IVP PRN PRN PRN Reason: Hypoglycemia Diphenhydramine HCl (Benadryl) 25 mg PO Q6H PRN PRN Reason: Itching Last Admin: 07/09/17 08:17 Dose: 25 mg Famotidine (Pepcid) 20 mg PO DAILY [facility] Last Admin: 07/11/17 10:13 Dose: Not Given Gabapentin (Neurontin) 300 mg PO [facility] Glucagon (Glucagon) 1 mg IM PRN PRN PRN Reason: Hypoglycemia Last Admin: 07/08/17 05:12 Dose: 1 mg Vancomycin HCl 1.25 gm/ Sodium (Chloride) 250 mls @ 166.667 mls/hr [facility] Vancomycin HCl 1 gm/ Device 200 mls @ 200 mls/hr [facility] Vancomycin HCl 750 mg/ Sodium (Chloride) 250 mls @ 250 mls/hr IVPB [facility] Last Admin: 07/10/17 16:50 Dose: 250 mls Vancomycin HCl 500 mg/ Sodium (Chloride) 100 mls @ 100 mls/hr IVPB [facility] Last Admin: 07/08/17 14:18 Dose: 100 mls Dextrose/Water (D5w) 1,000 mls @ 0 mls/hr IV .Q0M PRN; As Directed PRN Reason: Hypoglycemia Insulin Detemir 10 units/ (Miscellaneous Medication) 0.1 mls @ 0 mls/hr SC BID [facility] Last Admin: 07/11/17 10:13 Dose: Not Given Piperacillin Sod/Tazobactam (Sod 2.25 gm/ Sodium Chloride) 100 mls @ 200 mls/ hr IVPB 0600,1800 [facility] Last Admin: 07/11/17 05:27 Dose: 100 mls Insulin Human Lispro (Humalog) 0 units SC .AGGRESSIVE SLIDING PRN PRN Reason: Aggressive Correctional Scale Last Admin: 07/09/17 06:42 Dose: 9 unit Levothyroxine Sodium (Synthroid) 100 mcg PO 0600 [facility] Last Admin: 07/11/17 05:33 Dose: 100 mcg Miscellaneous Medication (Pharmacy To Dose) 1 each IVPB PRN PRN PRN Reason: SSSI Hold Vancomycin For (Level >20) 0 each FS .AT DIALYSIS [facility] Nystatin (Mycostatin Powder) 0 gm TOP BID [facility] Last Admin: 07/11/17 10:13 Dose: Not Given Oxycodone HCl (Oxycodone Ir) 5 mg PO Q4H PRN PRN Reason: Pain Last Admin: 07/10/17 11:44 Dose: 5 mg Sevelamer Carbonate (Renvela) 800 mg PO TID-WM [facility] Last Admin: 07/11/17 10:12 Dose: Not Given Simvastatin (Zocor) 5 mg PO HS [facility] Last Admin: 07/10/17 20:51 Dose: 5 mg Sodium Chloride (Flush - Normal Saline) 10 ml IVF Q12HR [facility] Last Admin: 07/11/17 10:13 Dose: Not Given Sodium Chloride (Flush - Normal Saline) 10 ml IVF PRN PRN PRN Reason: Saline Flush
--- NOTE | 2017-07-11 10:46 | CT ---
CT HEAD WITHOUT CONTRAST: Multiple axial tomograms were obtained through the head without IV enhancement. HISTORY: Stroke alert. Mental status change. Nonresponsive. COMPARISON: Comparison is made to recent CT head dated 06/03/17. That exam revealed no acute finding. FINDINGS: Ventricles remain normal size in position. No evidence of acute hemorrhage or mass. No evidence of acute infarct identified. No interval change noted. Findings were related to patient's physician by phone at 10:20 a.m. CODE ARNAUD POS: RUDI
--- NOTE | 2017-07-11 11:01 | PRG ---
DATE OF SERVICE: 07/11/2017 SUBJECTIVE: The patient is very drowsy this morning, hard to wake up. PHYSICAL EXAMINATION: GENERAL: This is an elderly female in no apparent distress. VITAL SIGNS: Temperature 98.4, pulse 93, respiratory 20, blood pressure 110/71. Musculoskeletal : No tenderness, No edema HEENT: Atraumatic normocephalic Neck: Supple Cardiovascular: S1S2 heard, Rate and rhythm regular Respiratory: Clear to auscultation Gastrointestinal: Abdomen is soft Dermatologic : No skin rash Neurologic: Alert and awake and oriented X3 No focal neurologic deficits. Moving all the extremities. Psychiatric: Mood and affect normal LABORATORY DATA: Potassium is 4.1, BUN 22, creatinine 3.2. ASSESSMENT AND PLAN: 1. End-stage renal disease on hemodialysis. 2. Altered mentation, most likely related to the medication and will reduce the gabapentin dose. 3. Leukocytosis. 4. Hypertension. 5. Anemia. 6. Edema. Follow up with ID for further recommendation. We will continue on dialysis as tolerated. No acute indication for dialysis today. MTDD
[2017-07-11] MEDS: Acetaminophen 325 MG TAB PO PRN ×2 (14:59→17:59)
[2017-07-11] MEDS: oxyCODONE 5 MG TAB PO PRN ×2 (15:51→20:12)
--- NOTE | 2017-07-11 16:01 | EKG ---
Test Reason : CODE BLUE Blood Pressure : / mmHG Vent. Rate : 081 BPM Atrial Rate : 081 BPM P-R Int : 134 ms QRS Dur : 166 ms QT Int : 520 ms P-R-T Axes : 065 164 013 degrees QTc Int : 604 ms Electronic ventricular pacemaker When compared with ECG of 06-JUL-2017 20:02, (Unconfirmed) Vent. rate has decreased BY 12 BPM Confirmed by ALTAGRACIA NAIK ([id number]) on 07/11/2017 4:00:56 PM Referred By: FAUSTO Confirmed By:ALTAGRACIA NAIK
--- NOTE | 2017-07-11 17:46 | CON ---
DATE OF CONSULTATION: 07/11/2017. NEUROLOGY CONSULTATION CONSULTING PHYSICIAN: Hospitalist service. IMPRESSION: 1. Possible transient ischemic attack with transient left-sided weakness. 2. End-stage renal disease. 3. Cellulitis. 4. Anemia. PLAN: 1. Aspirin 81 mg per day. 2. Carotid ultrasound. 3. Echocardiogram. HISTORY OF PRESENT ILLNESS: Ms. Young is a 66-year-old black female who is in the hospital for cell ulitis. Her reports that it looked like the left side of her face was weak from Saturday unt il Saturday. There was some slight difficulty swallowing during that interval of time. She did not re port any lateralized weakness of the arms or legs. She had a CT scan of the brain done, which was un remarkable. Her lab work was only notable for her azotemia. Her vital signs have otherwise been sta ble with relatively low blood pressures. She denies any past history of TIA or stroke-like symptoms. PAST MEDICAL HISTORY: As listed above. ALLERGIES: SULFA, CODEINE, CIPRO. FAMILY HISTORY: Noncontributory. SOCIAL HISTORY: No tobacco or illicit drug use. REVIEW OF SYSTEMS: No complaint of headache, nausea, vomiting, dizziness, double vision or trouble s wallowing. PHYSICAL EXAMINATION: GENERAL: She is an overweight woman, lying in bed, eating supper. HEENT: Pupils equal and reactive. Conjunctivae clear. NECK: No lymphadenopathy. EXTREMITIES: There are bandages and edema of both feet. NEUROLOGIC: Showed her to be alert and cooperative. Her speech is fluent and clear. Cranial nerves were intact. Motor exam showed symmetric strength. Plantar responses were downgoing. Gait was not tested. No abnormal movements were seen. LABORATORY STUDIES: EKG showed paced rhythm. SUMMARY: A 66-year-old woman with reported left-sided weakness of the face and possibly some difficu lty swallowing. This could be consistent with a small vessel stroke. Her symptoms seemed to have re solved. Can start antiplatelet therapy and complete her stroke workup.
[2017-07-11] MEDS: Amiodarone 200 MG TAB PO SCH (20:11)
[2017-07-11] MEDS: Simvastatin 5 MG TAB PO SCH (20:12)
[2017-07-11] MEDS ORDERED: Gabapentin 300 MG CAP PO SCH (21:00)
[2017-07-12] MEDS: Piperacillin/Tazobactam 2.25 GM in Sodium Chloride 0.9% 100 ML IVPB SCH ×2 (05:13→17:55)
[2017-07-12] MEDS: Levothyroxine Sodium 100 MCG TAB PO SCH (05:15)
--- NOTE | 2017-07-12 07:57 | ULT ---
CAROTID ULTRASOUND: COMPARISON: None. HISTORY: Unresponsiveness and altered mental status. TECHNIQUE: Multiplanar, mcclendon scale, and color Doppler images were obtained in a carotid ultrasound. FINDINGS: There is a small amount of plaque in the distal common carotid arteries and proximal internal carotid arteries. The Doppler waveforms are normal bilaterally. Peak systolic velocity in the right ICA is 56 cm/s. Peak systolic velocity in the right CCA is 56 cm /s. The right ICA/CCA ratio is 1.0. Peak systolic velocity in the left ICA is 33 cm/s. Peak systolic velocity in the left CCA is 52 cm/s . The left ICA/CCA ratio is 0.5. Both vertebral arteries demonstrate antegrade flow without focal stenosis. IMPRESSION: No evidence of hemodynamically significant stenosis. POS: OFF
[2017-07-12] MEDS: Insulin Detemir 100 UNITS/ML 10 UNITS in Pre-Filled Syringe 1 EACH SC SCH ×2 (07:59→21:48)
[2017-07-12] MEDS: Nystatin Powder 15 GM BOT TOP SCH ×2 (08:19→21:48)
[2017-07-12] MEDS: Sevelamer Carbonate 800 MG TAB PO SCH ×3 (08:19→16:17)
[2017-07-12] MEDS: Famotidine 20 MG TAB PO SCH (10:01)
[2017-07-12 12:04] LABS: Hemoglobin 10.8 g/dL (12.0-16.0); Mean Corpuscular HGB CONC 32.1 g/dL (32.0-36.0); Mean Corpuscular Hemoglobin 29.8 pg (27.0-31.0); Mean Corpuscular Volume 92.7 fl (81.0-99.0); RBC Distribution Width 17.3 % (11.5-14.5); Red Blood Cell (RBC) Count 3.63 mill/uL (4.20-5.40); White Blood Cell (WBC) Count 15.8 thou/uL (4.8-10.8)
[2017-07-12 12:15] LABS: Anion Gap 17 mmol/L (10-20); BUN (Urea Nitrogen) 35 mg/dL (9.8-20.1); Calc. Creatinine Clearance 18 mL/min (70-130); Calcium 9.5 mg/dL (7.8-10.44); Carbon Dioxide 24 mmol/L (23-31); Chloride 94 mmol/L (98-107); Estimated GFR-MDRD 12; Glucose 260 mg/dL (80-115); Potassium 4.8 mmol/L (3.5-5.1); Sodium 130 mmol/L (136-145)
[2017-07-12 12:18] LABS: Mean Platelet Volume 10.1 fL (7.4-10.4); Platelet Count 49 thou/uL (130-400)
[2017-07-12 12:23] LABS: Anisocytosis SLIGHT = 6-15 cells (100X) (0-5/hpf); Band 2 % (5-11); Hypochromia SLIGHT = 6-15 cells (100X) (0-5/hpf); Lymphocytes 5 % (21-51); MDiff Complete? YES; Metamyelocyte 1 % (0-0); Myelocyte 1 % (0-0); Neutrophil 89 % (42-75); Reactive Lymphocytes 2 % (0-10)
--- NOTE | 2017-07-12 13:26 | PDOC.PN ---
- Subjective Encounter Start Date: 07/12/17 Encounter Start Time: 11:00 Patient is seen today, alert and oriented. Discussed with patients family at bedside, Will wait on ID recommedations. - Objective Resuscitation Status: Resuscitation Status DNR:Do Not Resuscitate MAR Reviewed: Yes Vital Signs & Weight: Vital Signs (12 hours) Temp Pulse Resp BP Pulse Ox 07/12/17 11:03 98.6 F 82 18 110/67 99 07/12/17 10:45 83 20 91 L 07/12/17 08:00 98.5 F 81 20 98/61 96 07/12/17 06:59 95 07/12/17 06:55 90 16 95 07/12/17 03:31 98.8 F 82 22 H 94/64 92 L 07/12/17 02:44 94 L 07/12/17 01:49 83 20 94 L Weight Admit Weight 203 lb 9.6 oz Weight 206 lb 12.697 oz I&O: 07/11/17 07/12/17 07/13/17 06:59 06:59 06:59 Intake Total 250 300 Balance 250 300 Result Diagrams: 07/12/17 11:51 07/12/17 11:51 Additional Labs: Accuchecks 07/12/17 07/12/17 07/11/17 11:03 05:24 21:36 POC Glucose 238 H 210 H 206 H 07/11/17 16:36 POC Glucose 147 H Radiology Reviewed by me: Yes Phys Exam - Physical Examination HEENT: PERRLA, moist MMs Neck: no nodes, no JVD Respiratory: no wheezing, no rales Cardiovascular: RRR, no significant murmur Gastrointestinal: soft, non-tender Musculoskeletal: pulses present, edema present Neurological: non-focal, normal sensation Skin: no rash, normal turgor Dx/Plan (1) Acute respiratory failure with hypoxia Code(s): J96.01 - ACUTE RESPIRATORY FAILURE WITH HYPOXIA Status: Acute Comment: , continue on nasal canula to keep Sats >92%, (2) Septic shock Code(s): A41.9 - SEPSIS, UNSPECIFIED ORGANISM; R65.21 - SEVERE SEPSIS WITH SEPTIC SHOCK Status: Acute Comment: resolved now.Will continue with IV antibiotics. (3) TIA (transient ischemic attack) Status: Acute Comment: CT head negative for intracrtneal bleed, cannot do MRi due to pacemeaker, will do neurochecks. [place] monitor, Will start pt on Aspirn , Statin.stbale (4) Cellulitis Code(s): L03.90 - CELLULITIS, UNSPECIFIED Status: Acute Comment: continue IV antibiotics. Duration per ID (5) ESRD (end stage renal disease) on dialysis Code(s): N18.6 - END STAGE RENAL DISEASE; Z99.2 - DEPENDENCE ON RENAL DIALYSIS Status: Acute Comment: continueon HD as BP tolerates. (6) Thrombocytopenia Code(s): D69.6 - THROMBOCYTOPENIA, UNSPECIFIED Status: Acute Comment: new possbile due to sepsis. unable to put pt on dvt ppx due to low platelets. No scd due to severe leg pain. - Plan cont current plan of care, plan discussed w/ family, continue antibiotics, PT/OT , social security specialist, incentive spirometry, DVT proph w/lovenox * . - Discharge Day Encounter end time: 11:35 Review of Systems - Review of Systems Constitutional: negative: fever, chills, sweats, weakness, malaise, other Eyes: negative: Pain, Vision Change, Conjunctivae Inflammation, Eyelid Inflammation, Redness, Other Respiratory: negative: Cough, Dry, Shortness of Breath, Hemoptysis, SOB with Excertion, Pleuritic Pain, Sputum, Wheezing Cardiovascular: negative: chest pain, palpitations, orthopnea, paroxysmal nocturnal dyspnea, edema, light headedness, other Gastrointestinal: negative: Nausea, Vomiting, Abdominal Pain, Diarrhea, Constipation, Melena, Hematochezia, Other Musculoskeletal: negative: Neck Pain, Shoulder Pain, Arm Pain, Back Pain, Hand Pain, Leg Pain, Foot Pain, Other Neurological: negative: Weakness, Numbness, Incoordination, Change in Speech, Confusion, Seizures, Other - Medications/Allergies Allergies/Adverse Reactions: Allergies Allergy/AdvReac Type Severity Reaction Status Date / Time ciprofloxacin [From Cipro] Allergy Hives Verified 09/12/16 12:48 codeine Allergy tachycardia Verified 09/12/16 12:48 ,hallucinat ions Sulfa (Sulfonamide Allergy Hives Verified 09/12/16 12:48 Antibiotics) sulfamethoxazole Allergy Hives Verified 09/12/16 12:48 [From Bactrim] trimethoprim [From Bactrim] Allergy Hives Verified 09/12/16 12:48 Medications: Current Medications Acetaminophen (Tylenol) 650 mg PO Q4H PRN PRN Reason: Headache/Fever or Pain Last Admin: 07/11/17 17:59 Dose: 650 mg Albuterol/Ipratropium (Duoneb) 3 ml IPPB [id number] [facility] Last Admin: 07/12/17 10:45 Dose: 3 ml Alprazolam (Xanax) 0.5 mg PO ASDIR [facility] Last Admin: 07/10/17 08:34 Dose: 0.5 mg Amiodarone HCl (Cordarone) 200 mg PO HS [facility] Last Admin: 07/11/17 20:11 Dose: 200 mg Aspirin (Aspirin Chewable) 81 mg PO DAILY [facility] Last Admin: 07/12/17 10:01 Dose: 81 mg Dextrose/Water (Dextrose 50%) 25 gm SLOW IVP PRN PRN PRN Reason: Hypoglycemia Diphenhydramine HCl (Benadryl) 25 mg PO Q6H PRN PRN Reason: Itching Last Admin: 07/09/17 08:17 Dose: 25 mg Famotidine (Pepcid) 20 mg PO DAILY [facility] Last Admin: 07/12/17 10:01 Dose: 20 mg Glucagon (Glucagon) 1 mg IM PRN PRN PRN Reason: Hypoglycemia Last Admin: 07/08/17 05:12 Dose: 1 mg Vancomycin HCl 1.25 gm/ Sodium (Chloride) 250 mls @ 166.667 mls/hr [id number] Vancomycin HCl 1 gm/ Device 200 mls @ 200 mls/hr [facility] Vancomycin HCl 750 mg/ Sodium (Chloride) 250 mls @ 250 mls/hr IVPB [facility] Last Admin: 07/10/17 16:50 Dose: 250 mls Vancomycin HCl 500 mg/ Sodium (Chloride) 100 mls @ 100 mls/hr IVPB [facility] Last Admin: 07/08/17 14:18 Dose: 100 mls Dextrose/Water (D5w) 1,000 mls @ 0 mls/hr IV .Q0M PRN; As Directed PRN Reason: Hypoglycemia Insulin Detemir 10 units/ (Miscellaneous Medication) 0.1 mls @ 0 mls/hr SC BID [facility] Last Admin: 07/12/17 07:59 Dose: 0.1 mls Piperacillin Sod/Tazobactam (Sod 2.25 gm/ Sodium Chloride) 100 mls @ 200 mls/ hr IVPB 0600,1800 [facility] Last Admin: 07/12/17 05:13 Dose: 100 mls Insulin Human Lispro (Humalog) 0 units SC .AGGRESSIVE SLIDING PRN PRN Reason: Aggressive Correctional Scale Last Admin: 07/09/17 06:42 Dose: 9 unit Levothyroxine Sodium (Synthroid) 100 mcg PO 0600 [facility] Last Admin: 07/12/17 05:15 Dose: 100 mcg Miscellaneous Medication (Pharmacy To Dose) 1 each IVPB PRN PRN PRN Reason: SSSI Hold Vancomycin For (Level >20) 0 each FS .AT DIALYSIS [facility] Nystatin (Mycostatin Powder) 0 gm TOP BID [facility] Last Admin: 07/12/17 08:19 Dose: 1 applic Oxycodone HCl (Oxycodone Ir) 5 mg PO Q4H PRN PRN Reason: Pain Last Admin: 07/11/17 20:12 Dose: 5 mg Sevelamer Carbonate (Renvela) 800 mg PO TID-WM [facility] Last Admin: 07/12/17 11:41 Dose: Not Given Simvastatin (Zocor) 5 mg PO HS [facility] Last Admin: 07/11/17 20:12 Dose: 5 mg Sodium Chloride (Flush - Normal Saline) 10 ml IVF Q12HR [facility] Last Admin: 07/12/17 08:19 Dose: 10 ml Sodium Chloride (Flush - Normal Saline) 10 ml IVF PRN PRN PRN Reason: Saline Flush
[2017-07-12] MEDS: ALPRAZolam 0.5 MG TAB PO SCH (13:43)
--- NOTE | 2017-07-12 13:49 | CON ---
DATE OF CONSULTATION: 07/12/2017 REASON FOR CONSULTATION: Leg inflammatory changes, ulcers, peripheral vascular disease. HISTORY OF PRESENT ILLNESS: A 66-year-old patient who has a history of peripheral vascular disease, type 2 diabetes, ischemic cardiomyopathy with AICD in place, as well as renal insufficiency with end-stage renal disease on hemodialysis through a right upper extremity graft, brought to [facility] with worsening leg wounds and worsening pain, particularly in the right lower extremity. The initial evaluation at the emergency room showed the patient who was afebrile and the pertinent findings in the examination showed normal lung and heart exam. The abdomen was soft and nontender. There was evidence of swelling of left and right lower extremity with an ulcer, which is described below. The initial blood pressure was 130/98, pulse 89, O2 sat 96% and the initial laboratory data with a white cell count 27,000, hemoglobin 12, platelets 44,000. The patient had a mature neutrophilia on admission and the chemistry with the usual findings typical of patient's with end-stage renal disease, she did have elevated bilirubin at 2.2 and alkaline phosphatase of 154 , albumin 3.0. Urinalysis with greater than 50 WBCs. Microbiology thus far showed 2 sets of negative blood cultures in the final result in 5 days. Influenza A and B was negative as well. Imaging studies include a lower extremity ultrasound, which was arterial Doppler which showed severe peripheral vascular disease. In the right leg, there were no waveforms in the right lower extremity below the level. Currently, Ms. Young is awake. She feels close to her baseline status reportedly. She denies any headaches, no visual symptoms, sore throat, odynophagia, dysphagia, no dyspnea or chest pain, no back pain, no abdominal pain, no genitourinary symptoms. Pain in the lower extremities has improved. PAST MEDICAL HISTORY: Peripheral vascular disease, type 2 diabetes, end-stage renal disease on hemodialysis through an AV graft right upper extremity, AICD placement for management of ischemic cardiomyopathy. PAST SURGICAL HISTORY: Includes prior cholecystectomy, AV graft placement. SOCIAL HISTORY: Never a smoker. Lives in [place] with family members. FAMILY HISTORY: Noncontributory. CURRENT MEDICATIONS: Tylenol, DuoNeb, Xanax, Cordarone, aspirin, dextrose, Benadryl, insulin, levothyroxine, vancomycin sliding scale and Zosyn. ALLERGIES: CIPROFLOXACIN, CODEINE, SULFA DRUGS. The patient had an evaluation by Dr. Pabon, Neurology regarding the possibility of a CVA and he felt that she might have had a TIA. She was evaluated by Vascular Surgery and no hopes for revascularization are available. LABORATORY DATA: Has been reviewed above. The latest WBC count is down to 15.8 , hemoglobin 10, platelets 49 and the last wound further noticed from 2017. She had an extended area of ulceration at the back of the left ankle region extending to the lower end of the left calf with necrotic eschar at the center and poorly viable soft tissue surrounding it. The right heel, there is a necrotic irregular shallow ulceration with discoloration of the heel right side. ASSESSMENT: Peripheral vascular disease secondary to type 2 diabetes mellitus, end-stage renal disease on hemodialysis through an AV graft and ischemic cardiomyopathy with severe peripheral vascular disease, which is not amenable to revascularization after a full evaluation. Patient was admitted with inflammatory changes in the lower extremities, probably secondary to the lack of sufficient blood supply in particularly the right side. The right extremity is cooler than the left reflecting the extent of vascular insufficiency of that side. DISCUSSION: The patient has experienced the improvement in the pain once the antimicrobials were started. The types of organisms associated with this kind of process include a polymicrobial hunter such as Staphylococcus aureus including MRSA, gram-negative rods, and anaerobes as well as Streptococci. The current combination of antimicrobials has obviously been effective in improving the patient's symptoms; however, in the medium term, it is clear that this will not resolve in view of the persisting vascular insufficiency which was not amenable to intervention at this point in time. In terms of duration of antimicrobial therapy, I would probably recommend a transition to vancomycin sliding scale plus oral Flagyl. The oral gram negative coverage will have to be attempted with a third generation cephalosporin such as Omnicef or Vantin adjusted for renal function. She will more likely require amputations probably at the above knee level on the right side. She may have some chance of healing of the left ankle ulceration with wound care and antimicrobial therapy, but that is not likely either. She will eventually probably require a BKA amputation at that location. The patient obviously not ready for any aggressive surgical intervention at this point in time, so summarizing, consider discharge planning on vancomycin sliding scale administered at dialysis plus oral Flagyl adjusted for renal function 250 mg p.o. 3 times daily and oral Omnicef or Vantin adjusted for renal function. The duration of therapy will be approximately 3-4 weeks. MTDD
[2017-07-12] MEDS: oxyCODONE 5 MG TAB PO PRN (17:54)
--- NOTE | 2017-07-12 21:00 | PRG ---
DATE OF SERVICE: 07/12/2017 SUBJECTIVE: Patient was seen and examined at bedside and overnight events noted. Patient denies any shortness of breath or chest pain or palpitation. No history of nausea or vomitin g or diarrhea or fever or chills or cramps. OBJECTIVE: GENERAL: This is a well-built female, in no apparent distress. VITAL SIGNS: Temperature 97.9, pulse 70, respiratory rate 18, blood pressure 84/55. HEENT: Atraumatic, normocephalic. Oral mucosa is moist NECK: Supple. CARDIOVASCULAR: S1 and S2 heard. Rate and rhythm regular. RESPIRATORY: Clear to auscultation. GASTROINTESTINAL: Abdomen is soft. MUSCULOSKELETAL: No tenderness. No edema. DERMATOLOGIC: No skin rash. NEUROLOGIC: Alert and awake and oriented X3, No focal neurologic deficits. Moving all the extremitie s. PSYCHIATRIC: Mood and affect normal. LABORATORY DATA: Potassium 4.8, BUN 35, creatinine 4.5. ASSESSMENT AND PLAN: 1. End-stage renal disease. We will continue on hemodialysis. The patient continue to tolerate kristi lysis well today. We will continue to monitor. 2. Altered mentation, seems to be better. 3. Hypertension. 4. Anemia. 5. Edema. We will remove fluid with dialysis. Our plan is to continue on dialysis as tolerated.
[2017-07-12] MEDS: Simvastatin 5 MG TAB PO SCH (21:45)
[2017-07-12] MEDS: Amiodarone 200 MG TAB PO SCH (21:48)
[2017-07-13 06:15] LABS: Anion Gap 17 mmol/L (10-20); BUN (Urea Nitrogen) 30 mg/dL (9.8-20.1); Calc. Creatinine Clearance 20 mL/min (70-130); Calcium 9.6 mg/dL (7.8-10.44); Carbon Dioxide 26 mmol/L (23-31); Chloride 96 mmol/L (98-107); Estimated GFR-MDRD 13; Glucose 231 mg/dL (80-115); Potassium 4.8 mmol/L (3.5-5.1); Sodium 134 mmol/L (136-145)
[2017-07-13] MEDS: Piperacillin/Tazobactam 2.25 GM in Sodium Chloride 0.9% 100 ML IVPB SCH ×2 (06:15→17:44)
[2017-07-13] MEDS: Levothyroxine Sodium 100 MCG TAB PO SCH (06:35)
[2017-07-13] MEDS: Famotidine 20 MG TAB PO SCH (09:14)
[2017-07-13] MEDS: Sevelamer Carbonate 800 MG TAB PO SCH ×3 (09:14→17:44)
[2017-07-13] MEDS: Insulin Detemir 100 UNITS/ML 10 UNITS in Pre-Filled Syringe 1 EACH SC SCH (09:15)
[2017-07-13] MEDS: Nystatin Powder 15 GM BOT TOP SCH ×2 (09:16→21:31)
[2017-07-13] MEDS: oxyCODONE 5 MG TAB PO PRN (11:45)
[2017-07-13] MEDS: HumaLOG 300 UNITS/3 ML VIAL SC PRN (11:46)
--- NOTE | 2017-07-13 12:12 | PRG ---
DATE OF SERVICE: 07/13/2017 SUBJECTIVE: Patient was seen and examined at bedside and overnight events noted. Patient denies any shortness of breath or chest pain or palpitation. No history of nausea or vomiting or diarrhea or f ever or chills or cramps. OBJECTIVE: GENERAL: This is a well-built female in no apparent distress. VITAL SIGNS: Temperature 98.4, pulse 80, respiratory rate 18, blood pressure 90/65. HEENT: Atraumatic, normocephalic. Oral mucosa is moist. NECK: Supple. CARDIOVASCULAR: S1, S2 heard. Rate and rhythm regular. RESPIRATORY: Clear to auscultation. GASTROINTESTINAL: Abdomen is soft. MUSCULOSKELETAL: No tenderness. No edema. DERMATOLOGIC: No skin rash. NEUROLOGIC: Alert and awake and oriented x3. No focal neurologic deficits. Moving all the extremiti es. PSYCHIATRIC: Mood and affect normal. LABORATORY DATA: Potassium is 4.8, BUN 30, creatinine is 4.06. ASSESSMENT AND PLAN: 1. End-stage renal disease, no acute indication for dialysis. Continue to tolerate dialysis well. 2. Altered mentation, much better. 3. Hypertension. 4. Edema. 5. Fluid overload, stable. Plan is to continue on dialysis as tolerated.
--- NOTE | 2017-07-13 14:54 | PDOC.PN ---
- Subjective Encounter Start Date: 07/13/17 Encounter Start Time: 13:00 Patent is seine today, alert and oriented. no other Concern noted. Family asking for IV poain meds, Advised them to avoid that. - Objective Resuscitation Status: Resuscitation Status DNR:Do Not Resuscitate MAR Reviewed: Yes Vital Signs & Weight: Vital Signs (12 hours) Temp Pulse Resp BP Pulse Ox 07/13/17 08:00 98.4 F 83 18 95 07/13/17 07:24 98.4 F 83 18 90/65 95 07/13/17 06:06 82 20 94 L 07/13/17 03:21 80 20 95 Weight Admit Weight 203 lb 9.6 oz Weight 205 lb 14.588 oz I&O: 07/12/17 07/13/17 07/14/17 06:59 06:59 06:59 Intake Total 300 300 Balance 300 300 Result Diagrams: 07/12/17 11:51 07/13/17 05:01 Additional Labs: Accuchecks 07/13/17 07/13/17 07/12/17 11:29 06:15 20:06 POC Glucose 258 H 210 H 259 H Radiology Reviewed by me: Yes EKG Reviewed by me: Yes Phys Exam - Physical Examination HEENT: PERRLA, moist MMs Neck: no nodes, no JVD Respiratory: no wheezing, no rales Cardiovascular: RRR, no significant murmur Gastrointestinal: soft, non-tender Musculoskeletal: pulses present, edema present Neurological: non-focal, normal sensation Psychiatric: normal affect, A&O x 3 Dx/Plan (1) Acute respiratory failure with hypoxia Code(s): J96.01 - ACUTE RESPIRATORY FAILURE WITH HYPOXIA Status: Acute Comment: , continue on nasal canula to keep Sats >92%, (2) Septic shock Code(s): A41.9 - SEPSIS, UNSPECIFIED ORGANISM; R65.21 - SEVERE SEPSIS WITH SEPTIC SHOCK Status: Acute Comment: .Will continue with IV antibiotics, pt has source of infection from her both legs which are needing amputation but pt is refusing to get amputation. Pt is high risk of worening sepsis. (3) TIA (transient ischemic attack) Status: Acute Comment: CT head negative for intracrtneal bleed, cannot do MRi due to pacemeaker, will do neurochecks. Leticialey monitor, Will start pt on Aspirn , Statin.stbale Neurology recommeded Asprin. no further workup. speech evaalution. (4) Cellulitis Code(s): L03.90 - CELLULITIS, UNSPECIFIED Status: Acute Comment: continue IV antibiotics, at discharge switch to Flagyl 250mg po TID for 3-4 weeks along with omnicef 300mg po BID for 3-4 weeks,. and vancomycin with HD. (5) ESRD (end stage renal disease) on dialysis Code(s): N18.6 - END STAGE RENAL DISEASE; Z99.2 - DEPENDENCE ON RENAL DIALYSIS Status: Acute Comment: continueon HD as BP tolerates. (6) Thrombocytopenia Code(s): D69.6 - THROMBOCYTOPENIA, UNSPECIFIED Status: Acute Comment: new possbile due to sepsis. unable to put pt on dvt ppx due to low platelets. No scd due to severe leg pain. - Plan cont current plan of care, continue antibiotics, PT/OT, social science instructor, respiratory therapy, incentive spirometry, DVT proph w/lovenox * . - Discharge Day Encounter end time: 13:35 Review of Systems - Review of Systems Eyes: negative: Pain, Vision Change, Conjunctivae Inflammation, Eyelid Inflammation, Redness, Other ENT: negative: Ear Pain, Ear Discharge, Nose Pain, Nose Discharge, Nose Congestion, Mouth Pain, Mouth Swelling, Throat Pain, Throat Swelling, Other Respiratory: negative: Cough, Dry, Shortness of Breath, Hemoptysis, SOB with Excertion, Pleuritic Pain, Sputum, Wheezing Cardiovascular: edema Gastrointestinal: negative: Nausea, Vomiting, Abdominal Pain, Diarrhea, Constipation, Melena, Hematochezia, Other Genitourinary: negative: Dysuria, Frequency, Incontinence, Hematuria, Retention , Other Musculoskeletal: negative: Neck Pain, Shoulder Pain, Arm Pain, Back Pain, Hand Pain, Leg Pain, Foot Pain, Other Skin: negative: Rash, Lesions, Brant, Bruising, Other - Medications/Allergies Allergies/Adverse Reactions: Allergies Allergy/AdvReac Type Severity Reaction Status Date / Time ciprofloxacin [From Cipro] Allergy Hives Verified 09/12/16 12:48 codeine Allergy tachycardia Verified 09/12/16 12:48 ,hallucinat ions Sulfa (Sulfonamide Allergy Hives Verified 09/12/16 12:48 Antibiotics) sulfamethoxazole Allergy Hives Verified 09/12/16 12:48 [From Bactrim] trimethoprim [From Bactrim] Allergy Hives Verified 09/12/16 12:48 Medications: Current Medications Acetaminophen (Tylenol) 650 mg PO Q4H PRN PRN Reason: Headache/Fever or Pain Last Admin: 07/11/17 17:59 Dose: 650 mg Hydrocodone Bitart/Acetaminophen ([place] 10/325) 1 tab PO Q6H PRN PRN Reason: Moderate to Severe Pain (6-10) Albuterol/Ipratropium (Duoneb) 3 ml IPPB Q6H PRN PRN Reason: SOB &/or Wheezing Alprazolam (Xanax) 0.5 mg PO ASDIR [facility] Last Admin: 07/12/17 13:43 Dose: 0.5 mg Amiodarone HCl (Cordarone) 200 mg PO HS [facility] Last Admin: 07/12/17 21:48 Dose: Not Given Aspirin (Aspirin Chewable) 81 mg PO DAILY [facility] Last Admin: 07/13/17 09:15 Dose: 81 mg Dextrose/Water (Dextrose 50%) 25 gm SLOW IVP PRN PRN PRN Reason: Hypoglycemia Diphenhydramine HCl (Benadryl) 25 mg PO Q6H PRN PRN Reason: Itching Last Admin: 07/09/17 08:17 Dose: 25 mg Famotidine (Pepcid) 20 mg PO DAILY [facility] Last Admin: 07/13/17 09:14 Dose: 20 mg Glucagon (Glucagon) 1 mg IM PRN PRN PRN Reason: Hypoglycemia Last Admin: 07/08/17 05:12 Dose: 1 mg Vancomycin HCl 1.25 gm/ Sodium (Chloride) 250 mls @ 166.667 mls/hr IVPB WILLCALL [facility] Vancomycin HCl 1 gm/ Device 200 mls @ 200 mls/hr IVPB WILLCALL [facility] Vancomycin HCl 750 mg/ Sodium (Chloride) 250 mls @ 250 mls/hr IVPB [facility]CALL [facility] Last Admin: 07/10/17 16:50 Dose: 250 mls Vancomycin HCl 500 mg/ Sodium (Chloride) 100 mls @ 100 mls/hr IVPB [facility]CALL [facility] Last Admin: 07/08/17 14:18 Dose: 100 mls Dextrose/Water (D5w) 1,000 mls @ 0 mls/hr IV .Q0M PRN; As Directed PRN Reason: Hypoglycemia Piperacillin Sod/Tazobactam (Sod 2.25 gm/ Sodium Chloride) 100 mls @ 200 mls/ hr IVPB 0600,1800 [facility] Last Admin: 07/13/17 06:15 Dose: 100 mls Insulin Detemir 20 units/ (Miscellaneous Medication) 0.2 mls @ 0 mls/hr SC BID [facility] Insulin Human Lispro (Humalog) 0 units SC .AGGRESSIVE SLIDING PRN PRN Reason: Aggressive Correctional Scale Last Admin: 07/13/17 11:46 Dose: 9 unit Levothyroxine Sodium (Synthroid) 100 mcg PO 0600 [facility] Last Admin: 07/13/17 06:35 Dose: 100 mcg Miscellaneous Medication (Pharmacy To Dose) 1 each IVPB PRN PRN PRN Reason: SSSI Hold Vancomycin For (Level >20) 0 each FS .AT DIALYSIS [facility] Nystatin (Mycostatin Powder) 0 gm TOP BID [facility] Last Admin: 07/13/17 09:16 Dose: 1 applic Oxycodone HCl (Oxycodone Ir) 5 mg PO Q4H PRN PRN Reason: Pain Last Admin: 07/13/17 11:45 Dose: 5 mg Sevelamer Carbonate (Renvela) 800 mg PO TID-WM [facility] Last Admin: 07/13/17 11:46 Dose: 800 mg Simvastatin (Zocor) 5 mg PO HS [facility] Last Admin: 07/12/17 21:45 Dose: 5 mg Sodium Chloride (Flush - Normal Saline) 10 ml IVF Q12HR [facility] Last Admin: 07/13/17 09:16 Dose: 10 ml Sodium Chloride (Flush - Normal Saline) 10 ml IVF PRN PRN PRN Reason: Saline Flush
[2017-07-13 15:43] LABS: Hemoglobin 10.7 g/dL (12.0-16.0); Mean Corpuscular HGB CONC 31.2 g/dL (32.0-36.0); Mean Corpuscular Hemoglobin 29.1 pg (27.0-31.0); Mean Corpuscular Volume 93.2 fl (81.0-99.0); Mean Platelet Volume 11.9 fL (7.4-10.4); Platelet Count 49 thou/uL (130-400); RBC Distribution Width 17.2 % (11.5-14.5); Red Blood Cell (RBC) Count 3.67 mill/uL (4.20-5.40); White Blood Cell (WBC) Count 17.4 thou/uL (4.8-10.8)
[2017-07-13 15:53] LABS: Hemoglobin A1c 6.6 % (4.0-6.0)
[2017-07-13 16:06] LABS: #Lymphocytes 1.1 thou/uL (1.20-3.40); #Monocytes 1.1 thou/uL (0.11-0.59); #Neutrophils 15.1 thou/uL (1.40-6.50); %Basophils 0.1 % (0.0-1.0); %Eosinophils 0.2 % (0.0-10.0); %Lymphocytes 6.5 % (21.0-51.0); %Monocytes 6.2 % (0.0-10.0); %Neutrophils 86.9 % (42.0-75.0); Anisocytosis SLIGHT = 6-15 cells (100X) (0-5/hpf); MDiff Complete? YES; PLT Morphology Comment Appears Decreased; Polychromasia SLIGHT = 2-3 cells (100X) (0-2/hpf); Target Cells SLIGHT = 2-5 cells (100X) (0-1/hpf)
--- NOTE | 2017-07-13 17:08 | EKG ---
Test Reason : Blood Pressure : / mmHG Vent. Rate : 093 BPM Atrial Rate : 091 BPM P-R Int : 000 ms QRS Dur : 180 ms QT Int : 518 ms P-R-T Axes : 059 165 014 degrees QTc Int : 644 ms Electronic ventricular pacemaker Confirmed by CRISTIAN COREAS D.O. ([id number]), slot editor LUCY ACEVEDO ([id number] on 07/13/2017 5:07:33 PM Referred By: Confirmed By:CRISTIAN COREAS D.O.
[2017-07-13] MEDS: HYDROcodone/Acetaminophen 10/325 mg Tablet PO PRN (17:44)
[2017-07-13] MEDS: Amiodarone 200 MG TAB PO SCH (21:28)
[2017-07-13] MEDS: Insulin Detemir 100 UNITS/ML 20 UNITS in Pre-Filled Syringe 1 EACH SC SCH (21:28)
[2017-07-13] MEDS: Simvastatin 5 MG TAB PO SCH (21:29)
[2017-07-14] MEDS: HYDROcodone/Acetaminophen 10/325 mg Tablet PO PRN ×2 (05:41→14:53)
[2017-07-14] MEDS: Levothyroxine Sodium 100 MCG TAB PO SCH (05:41)
[2017-07-14] MEDS: Piperacillin/Tazobactam 2.25 GM in Sodium Chloride 0.9% 100 ML IVPB SCH ×2 (05:43→18:16)
[2017-07-14] MEDS: oxyCODONE 5 MG TAB PO PRN (08:45)
[2017-07-14] MEDS: Sevelamer Carbonate 800 MG TAB PO SCH ×3 (08:45→18:16)
[2017-07-14] MEDS: Nystatin Powder 15 GM BOT TOP SCH ×2 (08:48→21:46)
[2017-07-14] MEDS: Famotidine 20 MG TAB PO SCH (08:48)
[2017-07-14] MEDS: Insulin Detemir 100 UNITS/ML 20 UNITS in Pre-Filled Syringe 1 EACH SC SCH (08:48)
[2017-07-14 10:05] LABS: Glucose Accucheck Confirmation 89 mg/dl (80-115)
--- NOTE | 2017-07-14 14:16 | PDOC.PN ---
- Subjective Encounter Start Date: 07/14/17 Encounter Start Time: 12:30 Patient is seen today, drowsy and lethargic, Discussed with Patient and her at Bedside and With her Daughter over phone, Went through all options about surgical amputation for reducing the burden of infction and paliative care for keeping her comfortable with Oral Antibitics, Daughter want to discuss with her family and come up with decision before her condition worsen if they had to go amputation. - Objective Resuscitation Status: Resuscitation Status DNR:Do Not Resuscitate MAR Reviewed: Yes Vital Signs & Weight: Vital Signs (12 hours) Temp Pulse Resp BP Pulse Ox 07/14/17 08:23 98.5 F 81 18 115/76 90 L 07/14/17 08:00 98.5 F 81 18 115/76 90 L Weight Admit Weight 203 lb 9.6 oz Weight 207 lb 0.225 oz I&O: 07/13/17 07/14/17 07/15/17 06:59 06:59 06:59 Intake Total 300 3150 Output Total 1 Balance 300 3149 Result Diagrams: 07/13/17 15:13 07/13/17 05:01 Additional Labs: Accuchecks 07/14/17 07/14/17 07/13/17 11:49 05:46 19:47 POC Glucose 91 76 94 07/13/17 16:49 POC Glucose 140 H Radiology Reviewed by me: Yes Phys Exam - Physical Examination HEENT: PERRLA, moist MMs Neck: no nodes, no JVD Respiratory: no rales, wheezing present Cardiovascular: RRR, no significant murmur Gastrointestinal: soft, non-tender Diminised pulses on right leg, left is little better pulses in lower extrem Neurological: non-focal, normal sensation Psychiatric: normal affect Skin: no rash, normal turgor Dx/Plan (1) Acute respiratory failure with hypoxia Code(s): J96.01 - ACUTE RESPIRATORY FAILURE WITH HYPOXIA Status: Acute Comment: , continue on nasal canula to keep Sats >92%, (2) Septic shock Code(s): A41.9 - SEPSIS, UNSPECIFIED ORGANISM; R65.21 - SEVERE SEPSIS WITH SEPTIC SHOCK Status: Acute Comment: .Will continue with IV antibiotics, pt has source of infection from her both legs which are needing amputation but pt is refusing to get amputation. Pt is high risk of worening sepsis. Discussed with family and also with Infectious disease , who is suggestive Amputation at least of the right Above knee. (3) TIA (transient ischemic attack) Status: Acute Comment: CT head negative for intracrtneal bleed, cannot do MRi due to pacemeaker, will do neurochecks. [place] monitor, Will start pt on Aspirn , Statin.tatye Neurology recommeded Asprin. no further workup. speech evaalution. (4) Cellulitis Code(s): L03.90 - CELLULITIS, UNSPECIFIED Status: Acute Comment: continue IV antibiotics, at discharge switch to Flagyl 250mg po TID for 3-4 weeks along with omnicef 300mg po BID for 3-4 weeks,. and vancomycin with HD. (5) ESRD (end stage renal disease) on dialysis Code(s): N18.6 - END STAGE RENAL DISEASE; Z99.2 - DEPENDENCE ON RENAL DIALYSIS Status: Acute Comment: continueon HD as BP tolerates. (6) Thrombocytopenia Code(s): D69.6 - THROMBOCYTOPENIA, UNSPECIFIED Status: Acute Comment: new possbile due to sepsis. unable to put pt on dvt ppx due to low platelets. No scd due to severe leg pain. - Plan cont current plan of care, plan discussed w/ family (Spent 35 Min speaking to daughter on phone.), parks catheter, continue antibiotics, PT/OT, speech therapy , respiratory therapy, incentive spirometry, DVT proph w/heparin * . - Discharge Day Encounter end time: 13:15 Review of Systems - Review of Systems Constitutional: weakness, malaise. negative: fever, chills, sweats, other Eyes: negative: Pain, Vision Change, Conjunctivae Inflammation, Eyelid Inflammation, Redness, Other ENT: negative: Ear Pain, Ear Discharge, Nose Pain, Nose Discharge, Nose Congestion, Mouth Pain, Mouth Swelling, Throat Pain, Throat Swelling, Other Respiratory: Shortness of Breath. negative: Cough, Dry, Hemoptysis, SOB with Excertion, Pleuritic Pain, Sputum, Wheezing Cardiovascular: negative: chest pain, palpitations, orthopnea, paroxysmal nocturnal dyspnea, edema, light headedness, other Gastrointestinal: negative: Nausea, Vomiting, Abdominal Pain, Diarrhea, Constipation, Melena, Hematochezia, Other Genitourinary: negative: Dysuria, Frequency, Incontinence, Hematuria, Retention , Other Musculoskeletal: negative: Neck Pain, Shoulder Pain, Arm Pain, Back Pain, Hand Pain, Leg Pain, Foot Pain, Other Skin: negative: Rash, Lesions, Brant, Bruising, Other - Medications/Allergies Allergies/Adverse Reactions: Allergies Allergy/AdvReac Type Severity Reaction Status Date / Time ciprofloxacin [From Cipro] Allergy Hives Verified 09/12/16 12:48 codeine Allergy tachycardia Verified 09/12/16 12:48 ,hallucinat ions Sulfa (Sulfonamide Allergy Hives Verified 09/12/16 12:48 Antibiotics) sulfamethoxazole Allergy Hives Verified 09/12/16 12:48 [From Bactrim] trimethoprim [From Bactrim] Allergy Hives Verified 09/12/16 12:48 Medications: Current Medications Acetaminophen (Tylenol) 650 mg PO Q4H PRN PRN Reason: Headache/Fever or Pain Last Admin: 07/11/17 17:59 Dose: 650 mg Hydrocodone Bitart/Acetaminophen ([place] 10/325) 1 tab PO Q6H PRN PRN Reason: Moderate to Severe Pain (6-10) Last Admin: 07/14/17 05:41 Dose: 1 tab Albuterol/Ipratropium (Duoneb) 3 ml IPPB Q6H PRN PRN Reason: SOB &/or Wheezing Alprazolam (Xanax) 0.5 mg PO ASDIR [facility] Last Admin: 07/12/17 13:43 Dose: 0.5 mg Amiodarone HCl (Cordarone) 200 mg PO HS [facility] Last Admin: 07/13/17 21:28 Dose: Not Given Aspirin (Aspirin Chewable) 81 mg PO DAILY [facility] Last Admin: 07/14/17 08:48 Dose: 81 mg Dextrose/Water (Dextrose 50%) 25 gm SLOW IVP PRN PRN PRN Reason: Hypoglycemia Diphenhydramine HCl (Benadryl) 25 mg PO Q6H PRN PRN Reason: Itching Last Admin: 07/09/17 08:17 Dose: 25 mg Famotidine (Pepcid) 20 mg PO DAILY [facility] Last Admin: 07/14/17 08:48 Dose: 20 mg Glucagon (Glucagon) 1 mg IM PRN PRN PRN Reason: Hypoglycemia Last Admin: 07/08/17 05:12 Dose: 1 mg Vancomycin HCl 1.25 gm/ Sodium (Chloride) 250 mls @ 166.667 mls/hr IVPB WILLCALL [facility] Vancomycin HCl 1 gm/ Device 200 mls @ 200 mls/hr IVPB [facility]CALL [facility] Vancomycin HCl 750 mg/ Sodium (Chloride) 250 mls @ 250 mls/hr IVPB [facility] Last Admin: 07/10/17 16:50 Dose: 250 mls Vancomycin HCl 500 mg/ Sodium (Chloride) 100 mls @ 100 mls/hr IVPB [facility] Last Admin: 07/08/17 14:18 Dose: 100 mls Dextrose/Water (D5w) 1,000 mls @ 0 mls/hr IV .Q0M PRN; As Directed PRN Reason: Hypoglycemia Piperacillin Sod/Tazobactam (Sod 2.25 gm/ Sodium Chloride) 100 mls @ 200 mls/ hr IVPB 0600,1800 [facility] Last Admin: 07/14/17 05:43 Dose: 100 mls Insulin Detemir 10 units/ (Miscellaneous Medication) 0.1 mls @ 0 mls/hr SC QAM [facility] Insulin Detemir 15 units/ (Miscellaneous Medication) 0.15 mls @ 0 mls/hr SC [facility] Insulin Human Lispro (Humalog) 0 units SC .AGGRESSIVE SLIDING PRN PRN Reason: Aggressive Correctional Scale Last Admin: 07/13/17 11:46 Dose: 9 unit Levothyroxine Sodium (Synthroid) 100 mcg PO 0600 [facility] Last Admin: 07/14/17 05:41 Dose: 100 mcg Miscellaneous Medication (Pharmacy To Dose) 1 each IVPB PRN PRN PRN Reason: SSSI Hold Vancomycin For (Level >20) 0 each FS .AT DIALYSIS [facility] Nystatin (Mycostatin Powder) 0 gm TOP BID [facility] Last Admin: 07/14/17 08:48 Dose: 1 applic Oxycodone HCl (Oxycodone Ir) 5 mg PO Q4H PRN PRN Reason: Pain Last Admin: 07/14/17 08:45 Dose: 5 mg Sevelamer Carbonate (Renvela) 800 mg PO TID-[facility] Last Admin: 07/14/17 12:11 Dose: 800 mg Simvastatin (Zocor) 5 mg PO [facility] Last Admin: 07/13/17 21:29 Dose: 5 mg Sodium Chloride (Flush - Normal Saline) 10 ml IVF Q12HR [facility] Last Admin: 07/14/17 08:49 Dose: 10 ml Sodium Chloride (Flush - Normal Saline) 10 ml IVF PRN PRN PRN Reason: Saline Flush
--- NOTE | 2017-07-14 14:19 | PRG ---
DATE OF SERVICE: 07/14/2017 SUBJECTIVE: Ms. Young is awake and more talkative today. She still has quite prominent pain in the bilateral lower extremities. No headaches, no dyspnea or abdominal pain, no diarrhea. OBJECTIVE: VITAL SIGNS: Temperature max 98.5, blood pressure 115/76, pulse 81, respirations 18, O2 sat 90%. GENERAL: Appears in no distress, oriented, follows commands. LUNGS: Clear. HEART: S1, S2, regular rate. ABDOMEN: Soft throughout. EXTREMITIES: Both right and left lower extremities with marked tenderness on palpation. The right l ower extremity is cool to touch. The left is warm. No pulses are palpable. LABORATORY DATA: White cell count is at 17.4, hemoglobin 10.7, platelets 49 with 86% neutrophils. M icrobiology with negative blood cultures. ASSESSMENT AND DISCUSSION: Peripheral vascular disease associated with type 2 diabetes mellitus in t he setting of end-stage renal disease with no options for revascularization. Patient with persistenc e of an inflammatory process, the right leg seems to be the worse affected limb in terms of ischemia and I believe that she needs to have an amputation. I discussed this with the family and with the christy minaya and she seems to be willing to consider amputation of the right lower extremity and I would adv ise reconsulting surgery at this point in time.
[2017-07-14 16:50] LABS: Vancomycin, Random 9.5 ug/mL (See Comment)
--- NOTE | 2017-07-14 18:23 | PRG ---
DATE OF SERVICE: 07/14/2017 SUBJECTIVE: Patient was seen and examined at bedside and overnight events noted. Patient denies any shortness of breath or chest pain or palpitation. No history of nausea or vomitin g or diarrhea or fever or chills or cramps. OBJECTIVE: GENERAL: This is an elderly female, in no apparent distress. VITAL SIGNS: Temperature 98.5, pulse 81, respiratory rate 18, blood pressure 115/76. HEENT: Atraumatic, normocephalic. Oral mucosa is moist NECK: Supple. CARDIOVASCULAR: S1 and S2 heard. Rate and rhythm regular. RESPIRATORY: Clear to auscultation. GASTROINTESTINAL: Abdomen is soft. MUSCULOSKELETAL: No tenderness. No edema. DERMATOLOGIC: No skin rash. NEUROLOGIC: Alert and awake and oriented X3, No focal neurologic deficits. Moving all the extremitie s. PSYCHIATRIC: Mood and affect normal. LABORATORY DATA: No labs done today. ASSESSMENT AND PLAN: 1. End-stage renal disease. Continue on hemodialysis Saturday, Saturday, Saturday, check labs in the m orning. 2. Altered mentation, better. 3. Nonhealing leg ulcers. 4. Hypertension. 5. Edema. 6. Anemia. Plan is to check labs in the morning. Continue dialysis as tolerated.
[2017-07-14] MEDS ORDERED: Insulin Detemir 100 UNITS/ML 15 UNITS in Pre-Filled Syringe 1 EACH SC SCH (21:00)
[2017-07-14] MEDS: Simvastatin 5 MG TAB PO SCH (21:45)
[2017-07-14] MEDS: Amiodarone 200 MG TAB PO SCH (21:46)
[2017-07-15] MEDS: Piperacillin/Tazobactam 2.25 GM in Sodium Chloride 0.9% 100 ML IVPB SCH ×2 (05:46→12:57)
[2017-07-15] MEDS: Levothyroxine Sodium 100 MCG TAB PO SCH (05:46)
[2017-07-15] MEDS: HYDROcodone/Acetaminophen 10/325 mg Tablet PO PRN (06:23)
--- NOTE | 2017-07-15 08:47 | PRG ---
DATE OF SERVICE: 07/15/2017 SUBJECTIVE: This is a 66-year-old female being seen for end-stage renal disease. The patient denies any nausea, vomiting or chest pain. PHYSICAL EXAMINATION: GENERAL: Patient is awake, alert. VITAL SIGNS: Afebrile, pulse 70, breathing at 16, blood pressure 130/68. OBJECTIVE: See above. Awake, alert, in no acute distress. GENERAL APPEARANCE AND MENTAL STATUS: Fair. HEAD/NECK: Normocephalic. Atraumatic. EYES: EOMI. No deformity. EARS: Clear. No ulcers. NOSE: Intact. No lesions. MOUTH: Clear. No discharge. THROAT: Clear. No exudate. LUNGS: Clear. No crackles. CARDIAC: S1, S2. No rub. ABDOMEN: Benign. BS+. GENITALIA/RECTUM: Hernandez absent. BACK/EXTREMITIES: Edema 0+ Ulcer- NEUROLOGICAL: Alert and motor intact. SKIN: Rash- Bruise- LYMPHATICS: Edema- Ulcer- LABORATORY: Hemoglobin 10.7. ASSESSMENT AND RECOMMENDATIONS: 1. Stage 6 chronic kidney disease, on hemodialysis. 2. Hypertension, stable. 3. Anemia, stable. 4. Medications based on glomerular filtration rate are appropriate.
[2017-07-15] MEDS ORDERED: Sodium Chloride 0.9% 250 ML 200 ML IVPB SCH (09:00)
[2017-07-15] MEDS: Famotidine 20 MG TAB PO SCH (09:09)
[2017-07-15] MEDS: Sevelamer Carbonate 800 MG TAB PO SCH ×3 (09:09→18:07)
[2017-07-15] MEDS: Nystatin Powder 15 GM BOT TOP SCH ×2 (09:10→19:57)
[2017-07-15] MEDS: Insulin Detemir 100 UNITS/ML 10 UNITS in Pre-Filled Syringe 1 EACH SC SCH (09:10)
[2017-07-15] MEDS ORDERED: Sodium Chloride 0.9% 200 ML IVPB SCH (09:15)
--- NOTE | 2017-07-15 13:27 | PDOC.PN ---
- Subjective Encounter Start Date: 07/15/17 Encounter Start Time: 11:00 Patient is seen today, alert and oriented. No other Concenr snoted. Discussed with Daughter at bedside, they want to go ahead with Syurgical option of Amputation of the most infected extremity which is the right leg with poor vascularity below the knee. - Objective Resuscitation Status: Resuscitation Status DNR:Do Not Resuscitate MAR Reviewed: Yes Vital Signs & Weight: Vital Signs (12 hours) Temp Pulse Resp BP Pulse Ox 07/15/17 12:06 97.8 F 86 20 92/66 07/15/17 08:31 98.3 F 73 20 83/52 L 90 L 07/15/17 08:00 98.3 F 73 20 90 L 07/15/17 04:39 93 L Weight Admit Weight 203 lb 9.6 oz Weight 207 lb 10.807 oz I&O: 07/14/17 07/15/17 07/16/17 06:59 06:59 06:59 Intake Total 3150 1160 180 Output Total 1 Balance 3149 1160 180 Result Diagrams: 07/13/17 15:13 07/13/17 05:01 Additional Labs: Accuchecks 07/15/17 07/15/17 07/14/17 10:54 05:42 19:53 POC Glucose 76 41 L* 83 07/14/17 07/14/17 18:26 17:31 POC Glucose 86 83 Radiology Reviewed by me: Yes Phys Exam - Physical Examination HEENT: PERRLA, moist MMs Neck: no nodes, no JVD Respiratory: no wheezing, no rales Cardiovascular: RRR, no significant murmur Gastrointestinal: soft, non-tender Musculoskeletal: edema present Neurological: non-focal, normal sensation Lymphatic: no nodes Psychiatric: normal affect, A&O x 3 Skin: no rash, normal turgor Dx/Plan (1) Acute respiratory failure with hypoxia Code(s): J96.01 - ACUTE RESPIRATORY FAILURE WITH HYPOXIA Status: Acute Comment: , continue on nasal canula to keep Sats >92%, (2) Septic shock Code(s): A41.9 - SEPSIS, UNSPECIFIED ORGANISM; R65.21 - SEVERE SEPSIS WITH SEPTIC SHOCK Status: Acute Comment: .Will continue with IV antibiotics, pt has source of infection from her both legs which are needing amputation but pt is refusing to get amputation. Pt is high risk of worening sepsis. Discussed with family and also with Infectious disease , who is suggestive Amputation at least of the right Above knee. (3) TIA (transient ischemic attack) Status: Acute Comment: CT head negative for intracrtneal bleed, cannot do MRi due to pacemeaker, will do neurochecks. Closley monitor, Will start pt on Aspirn , Statin.stbale Neurology recommeded Asprin. no further workup. speech evaalution. (4) Cellulitis Code(s): L03.90 - CELLULITIS, UNSPECIFIED Status: Acute Comment: continue IV antibiotics, at discharge switch to Flagyl 250mg po TID for 3-4 weeks along with omnicef 300mg po BID for 3-4 weeks,. and vancomycin with HD. (5) ESRD (end stage renal disease) on dialysis Code(s): N18.6 - END STAGE RENAL DISEASE; Z99.2 - DEPENDENCE ON RENAL DIALYSIS Status: Acute Comment: continueon HD as BP tolerates. (6) Thrombocytopenia Code(s): D69.6 - THROMBOCYTOPENIA, UNSPECIFIED Status: Acute Comment: new possbile due to sepsis. unable to put pt on dvt ppx due to low platelets. No scd due to severe leg pain. (7) Hypotension Status: Acute Comment: Pt is given a fluid bolous of 200ml becausea of low blood pressures. will closley monitor. (8) Hypoglycemia Code(s): E16.2 - HYPOGLYCEMIA, UNSPECIFIED Status: Acute Comment: Correct perprotocol, will hold levemir, will make it once ddaily in Am, her A1C is 6.6. - Plan cont current plan of care, plan discussed w/ family, continue antibiotics, PT/OT , pediatric social worker, incentive spirometry, DVT proph w/SCDs * . - Discharge Day Encounter end time: 11:35 Review of Systems - Review of Systems Eyes: negative: Pain, Vision Change, Conjunctivae Inflammation, Eyelid Inflammation, Redness, Other ENT: negative: Ear Pain, Ear Discharge, Nose Pain, Nose Discharge, Nose Congestion, Mouth Pain, Mouth Swelling, Throat Pain, Throat Swelling, Other Respiratory: negative: Cough, Dry, Shortness of Breath, Hemoptysis, SOB with Excertion, Pleuritic Pain, Sputum, Wheezing Cardiovascular: negative: chest pain, palpitations, orthopnea, paroxysmal nocturnal dyspnea, edema, light headedness, other Gastrointestinal: negative: Nausea, Vomiting, Abdominal Pain, Diarrhea, Constipation, Melena, Hematochezia, Other Musculoskeletal: negative: Neck Pain, Shoulder Pain, Arm Pain, Back Pain, Hand Pain, Leg Pain, Foot Pain, Other Skin: negative: Rash, Lesions, Brant, Bruising, Other - Medications/Allergies Allergies/Adverse Reactions: Allergies Allergy/AdvReac Type Severity Reaction Status Date / Time ciprofloxacin [From Cipro] Allergy Hives Verified 09/12/16 12:48 codeine Allergy tachycardia Verified 09/12/16 12:48 ,hallucinat ions Sulfa (Sulfonamide Allergy Hives Verified 09/12/16 12:48 Antibiotics) sulfamethoxazole Allergy Hives Verified 09/12/16 12:48 [From Bactrim] trimethoprim [From Bactrim] Allergy Hives Verified 09/12/16 12:48 Medications: Current Medications Acetaminophen (Tylenol) 650 mg PO Q4H PRN PRN Reason: Headache/Fever or Pain Last Admin: 07/11/17 17:59 Dose: 650 mg Hydrocodone Bitart/Acetaminophen ([place] 10/325) 1 tab PO Q6H PRN PRN Reason: Moderate to Severe Pain (6-10) Last Admin: 07/15/17 06:23 Dose: 1 tab Albuterol/Ipratropium (Duoneb) 3 ml IPPB Q6H PRN PRN Reason: SOB &/or Wheezing Alprazolam (Xanax) 0.5 mg PO ASDIR [facility] Last Admin: 07/12/17 13:43 Dose: 0.5 mg Amiodarone HCl (Cordarone) 200 mg PO [facility] Last Admin: 07/14/17 21:46 Dose: 200 mg Aspirin (Aspirin Chewable) 81 mg PO DAILY [facility] Last Admin: 07/15/17 09:09 Dose: Not Given Dextrose/Water (Dextrose 50%) 25 gm SLOW IVP PRN PRN PRN Reason: Hypoglycemia Diphenhydramine HCl (Benadryl) 25 mg PO Q6H PRN PRN Reason: Itching Last Admin: 07/09/17 08:17 Dose: 25 mg Famotidine (Pepcid) 20 mg PO DAILY [facility] Last Admin: 07/15/17 09:09 Dose: Not Given Glucagon (Glucagon) 1 mg IM PRN PRN PRN Reason: Hypoglycemia Last Admin: 07/08/17 05:12 Dose: 1 mg Vancomycin HCl 1.25 gm/ Sodium (Chloride) 250 mls @ 166.667 mls/hr IVPB [facility] Vancomycin HCl 1 gm/ Device 200 mls @ 200 mls/hr IVPB [facility] Vancomycin HCl 750 mg/ Sodium (Chloride) 250 mls @ 250 mls/hr IVPB [facility] Last Admin: 07/10/17 16:50 Dose: 250 mls Vancomycin HCl 500 mg/ Sodium (Chloride) 100 mls @ 100 mls/hr IVPB [facility] Last Admin: 07/08/17 14:18 Dose: 100 mls Dextrose/Water (D5w) 1,000 mls @ 0 mls/hr IV .Q0M PRN; As Directed PRN Reason: Hypoglycemia Insulin Detemir 10 units/ (Miscellaneous Medication) 0.1 mls @ 0 mls/hr SC QAM [facility] Last Admin: 07/15/17 09:10 Dose: Not Given Piperacillin Sod/Tazobactam (Sod 2.25 gm/ Sodium Chloride) 100 mls @ 200 mls/ hr IVPB 0000,1200 [facility] Last Admin: 07/15/17 12:57 Dose: 100 mls Insulin Human Lispro (Humalog) 0 units SC .AGGRESSIVE SLIDING PRN PRN Reason: Aggressive Correctional Scale Last Admin: 07/13/17 11:46 Dose: 9 unit Levothyroxine Sodium (Synthroid) 100 mcg PO 0600 [facility] Last Admin: 07/15/17 05:46 Dose: 100 mcg Miscellaneous Medication (Pharmacy To Dose) 1 each IVPB PRN PRN PRN Reason: SSSI Hold Vancomycin For (Level >20) 0 each FS .AT DIALYSIS ON [facility] OF [facility] Nystatin (Mycostatin Powder) 0 gm TOP BID [facility] Last Admin: 07/15/17 09:10 Dose: 1 applic Oxycodone HCl (Oxycodone Ir) 5 mg PO Q4H PRN PRN Reason: Pain Last Admin: 07/14/17 08:45 Dose: 5 mg Sevelamer Carbonate (Renvela) 800 mg PO TID[facility] Last Admin: 07/15/17 12:57 Dose: Not Given Simvastatin (Zocor) 5 mg PO HS [facility] Last Admin: 07/14/17 21:45 Dose: 5 mg Sodium Chloride (Flush - Normal Saline) 10 ml IVF Q12HR [facility] Last Admin: 07/15/17 09:10 Dose: 10 ml Sodium Chloride (Flush - Normal Saline) 10 ml IVF PRN PRN PRN Reason: Saline Flush
[2017-07-15 17:29] LABS: Hemoglobin 8.6 g/dL (12.0-16.0); Mean Corpuscular HGB CONC 30.5 g/dL (32.0-36.0); Mean Corpuscular Hemoglobin 28.3 pg (27.0-31.0); Mean Corpuscular Volume 92.7 fl (81.0-99.0); Mean Platelet Volume 10.3 fL (7.4-10.4); Platelet Count 68 thou/uL (130-400); RBC Distribution Width 17.3 % (11.5-14.5); Red Blood Cell (RBC) Count 3.04 mill/uL (4.20-5.40); White Blood Cell (WBC) Count 12.5 thou/uL (4.8-10.8)
[2017-07-15 17:47] LABS: Anion Gap 13 mmol/L (10-20); BUN (Urea Nitrogen) 46 mg/dL (9.8-20.1); Calc. Creatinine Clearance 19 mL/min (70-130); Calcium 7.2 mg/dL (7.8-10.44); Carbon Dioxide 19 mmol/L (23-31); Chloride 105 mmol/L (98-107); Estimated GFR-MDRD 12; Glucose 81 mg/dL (80-115); Potassium 4.1 mmol/L (3.5-5.1); Sodium 133 mmol/L (136-145)
[2017-07-15 18:24] LABS: #Eosinphils 0.1 thou/uL (0.0-0.7); #Lymphocytes 0.8 thou/uL (1.20-3.40); #Monocytes 0.7 thou/uL (0.11-0.59); #Neutrophils 10.8 thou/uL (1.40-6.50); %Basophils 0.2 % (0.0-1.0); %Eosinophils 0.6 % (0.0-10.0); %Lymphocytes 6.6 % (21.0-51.0); %Monocytes 5.4 % (0.0-10.0); %Neutrophils 87.1 % (42.0-75.0); Anisocytosis SLIGHT = 6-15 cells (100X) (0-5/hpf); MDiff Complete? YES; Ovalocytes SLIGHT = 2-5 cells (100X) (0-1/hpf); PLT Morphology Comment Appears Decreased; Polychromasia MODERATE = 3-4 cells (100X) (0-2/hpf); Target Cells SLIGHT = 2-5 cells (100X) (0-1/hpf)
[2017-07-15] MEDS: oxyCODONE 5 MG TAB PO PRN ×2 (19:56→23:58)
[2017-07-15] MEDS: Amiodarone 200 MG TAB PO SCH (19:56)
[2017-07-15] MEDS: Simvastatin 5 MG TAB PO SCH (19:57)
[2017-07-16] MEDS: Piperacillin/Tazobactam 2.25 GM in Sodium Chloride 0.9% 100 ML IVPB SCH ×2 (00:35→12:06)
[2017-07-16] MEDS: Levothyroxine Sodium 100 MCG TAB PO SCH (05:43)
--- NOTE | 2017-07-16 09:36 | PRG ---
DATE OF SERVICE: 07/16/2017 SUBJECTIVE: This 66-year-old female being seen for end-stage renal disease. Patient denies any naus ea, vomiting or chest pain. PHYSICAL EXAMINATION: GENERAL: Patient is awake, alert. VITAL SIGNS: Afebrile, pulse 75, breathing at 16, blood pressure was 100/73. HEAD/NECK: Normocephalic. Atraumatic. EYES: EOMI. No deformity. EARS: Clear. No ulcers. NOSE: Intact. No lesions. MOUTH: Clear. No discharge. THROAT: Clear. No exudate. LUNGS: Clear. No crackles. CARDIAC: S1, S2. No rub. ABDOMEN: Benign. BS+. GENITALIA/RECTUM: Hernandez absent. BACK/EXTREMITIES: Edema 0+ Ulcer- NEUROLOGICAL: Alert and motor intact. SKIN: Rash- Bruise- LYMPHATICS: Edema- Ulcer- LABORATORY DATA: Show hemoglobin 8.6. ASSESSMENT AND RECOMMENDATIONS: 1. Stage 6 chronic kidney disease, continue hemodialysis. 2. Hypertension, stable. 3. Anemia, stable. 4. Medications based on glomerular filtration rate are appropriate. Hemoglobin has dropped a little bit. I will recheck hemoglobin and consider GI consultation.
[2017-07-16 10:01] LABS: Vancomycin, Random 6.2 ug/mL (See Comment)
[2017-07-16] MEDS: Sevelamer Carbonate 800 MG TAB PO SCH ×3 (12:00→16:48)
[2017-07-16] MEDS: Famotidine 20 MG TAB PO SCH (12:01)
[2017-07-16] MEDS: Insulin Detemir 100 UNITS/ML 10 UNITS in Pre-Filled Syringe 1 EACH SC SCH (12:04)
[2017-07-16] MEDS: Nystatin Powder 15 GM BOT TOP SCH ×2 (12:07→22:06)
[2017-07-16] MEDS: oxyCODONE 5 MG TAB PO PRN ×3 (12:28→22:09)
--- NOTE | 2017-07-16 16:15 | PDOC.PN ---
- Subjective Encounter Start Date: 07/16/17 Encounter Start Time: 16:15 Subjective: nsg notes rev, david ovn, at bedside. pt states and -: both state that she is willing to undergo amputation at this point in time - Objective Resuscitation Status: Resuscitation Status DNR:Do Not Resuscitate Vital Signs & Weight: Vital Signs (12 hours) Temp Pulse Resp BP Pulse Ox 07/16/17 12:49 98.0 F 78 20 105/69 94 L 07/16/17 07:22 97.5 F L 75 18 93 L Weight Admit Weight 203 lb 9.6 oz Weight 207 lb 3.752 oz I&O: 07/15/17 07/16/17 07/17/17 06:59 06:59 06:59 Intake Total 1160 360 Balance 1160 360 Result Diagrams: 07/15/17 16:20 07/15/17 16:20 Additional Labs: Accuchecks 07/16/17 07/16/17 07/15/17 12:05 05:03 20:08 POC Glucose 97 87 76 07/15/17 06:22 POC Glucose 76 Phys Exam - Physical Examination Constitutional: NAD HEENT: PERRLA, moist MMs, sclera anicteric Respiratory: no wheezing, no rales, no rhonchi, clear to auscultation bilateral Cardiovascular: RRR, no significant murmur, no rub Gastrointestinal: soft, positive bowel sounds dressings not removed wounds Neurological: moves all 4 limbs Psychiatric: normal affect Dx/Plan - Plan * recurrent LE ulcerations with cellulitis * continue on abx as per ID * apprec ID c/s ESRD on HD * apprec nephrology c/s PVD * question of amputation * apprec c/s * d/w pt and who state that this has been an option brought up before but this time they feel ready because her quality of life has significantly declined with recurrent ulcerations, infections, and pain diet: renal activity: as gail dvt ppx Review of Systems - Medications/Allergies Allergies/Adverse Reactions: Allergies Allergy/AdvReac Type Severity Reaction Status Date / Time ciprofloxacin [From Cipro] Allergy Hives Verified 09/12/16 12:48 codeine Allergy tachycardia Verified 09/12/16 12:48 ,hallucinat ions Sulfa (Sulfonamide Allergy Hives Verified 09/12/16 12:48 Antibiotics) sulfamethoxazole Allergy Hives Verified 09/12/16 12:48 [From Bactrim] trimethoprim [From Bactrim] Allergy Hives Verified 09/12/16 12:48 Medications: Current Medications Acetaminophen (Tylenol) 650 mg PO Q4H PRN PRN Reason: Headache/Fever or Pain Last Admin: 07/11/17 17:59 Dose: 650 mg Hydrocodone Bitart/Acetaminophen ([place] 10/325) 1 tab PO Q6H PRN PRN Reason: Moderate to Severe Pain (6-10) Last Admin: 07/15/17 06:23 Dose: 1 tab Albuterol/Ipratropium (Duoneb) 3 ml IPPB Q6H PRN PRN Reason: SOB &/or Wheezing Alprazolam (Xanax) 0.5 mg PO [facility] Last Admin: 07/12/17 13:43 Dose: 0.5 mg Amiodarone HCl (Cordarone) 200 mg PO HS [facility] Last Admin: 07/16/17 22:06 Dose: Not Given Aspirin (Aspirin Chewable) 81 mg PO DAILY [facility] Last Admin: 07/16/17 12:01 Dose: 81 mg Dextrose/Water (Dextrose 50%) 25 gm SLOW IVP PRN PRN PRN Reason: Hypoglycemia Diphenhydramine HCl (Benadryl) 25 mg PO Q6H PRN PRN Reason: Itching Last Admin: 07/09/17 08:17 Dose: 25 mg Famotidine (Pepcid) 20 mg PO DAILY [facility] Last Admin: 07/16/17 12:01 Dose: 20 mg Glucagon (Glucagon) 1 mg IM PRN PRN PRN Reason: Hypoglycemia Last Admin: 07/08/17 05:12 Dose: 1 mg Vancomycin HCl 1.25 gm/ Sodium (Chloride) 250 mls @ 166.667 mls/hr IVPB [facility] Vancomycin HCl 1 gm/ Device 200 mls @ 200 mls/hr IVPB [facility] Vancomycin HCl 750 mg/ Sodium (Chloride) 250 mls @ 250 mls/hr IVPB [facility] Last Admin: 07/10/17 16:50 Dose: 250 mls Vancomycin HCl 500 mg/ Sodium (Chloride) 100 mls @ 100 mls/hr IVPB [facility] Last Admin: 07/08/17 14:18 Dose: 100 mls Dextrose/Water (D5w) 1,000 mls @ 0 mls/hr IV .Q0M PRN; As Directed PRN Reason: Hypoglycemia Insulin Detemir 10 units/ (Miscellaneous Medication) 0.1 mls @ 0 mls/hr SC QAM [facility] Last Admin: 07/16/17 12:04 Dose: 0.1 mls Piperacillin Sod/Tazobactam (Sod 2.25 gm/ Sodium Chloride) 100 mls @ 200 mls/ hr IVPB 0000,1200 [facility] Last Admin: 07/17/17 00:35 Dose: 100 mls Insulin Human Lispro (Humalog) 0 units SC .AGGRESSIVE SLIDING PRN PRN Reason: Aggressive Correctional Scale Last Admin: 07/13/17 11:46 Dose: 9 unit Levothyroxine Sodium (Synthroid) 100 mcg PO 0600 [facility] Last Admin: 07/16/17 05:43 Dose: 100 mcg Miscellaneous Medication (Pharmacy To Dose) 1 each IVPB PRN PRN PRN Reason: SSSI Hold Vancomycin For (Level >20) 0 each FS .AT DIALYSIS [facility] Nystatin (Mycostatin Powder) 0 gm TOP BID [facility] Last Admin: 07/16/17 22:06 Dose: 1 applic Oxycodone HCl (Oxycodone Ir) 5 mg PO Q4H PRN PRN Reason: Pain Last Admin: 07/16/17 22:09 Dose: 5 mg Sevelamer Carbonate (Renvela) 800 mg PO TID[facility] Last Admin: 07/16/17 16:48 Dose: 800 mg Simvastatin (Zocor) 5 mg PO HS [facility] Last Admin: 07/16/17 22:06 Dose: 5 mg Sodium Chloride (Flush - Normal Saline) 10 ml IVF Q12HR [facility] Last Admin: 07/16/17 22:06 Dose: 10 ml Sodium Chloride (Flush - Normal Saline) 10 ml IVF PRN PRN PRN Reason: Saline Flush
[2017-07-16] MEDS: Amiodarone 200 MG TAB PO SCH (22:06)
[2017-07-16] MEDS: Simvastatin 5 MG TAB PO SCH (22:06)
[2017-07-17] MEDS: Piperacillin/Tazobactam 2.25 GM in Sodium Chloride 0.9% 100 ML IVPB SCH ×3 (00:35→23:53)
--- NOTE | 2017-07-17 08:52 | PRG ---
DATE OF SERVICE: 07/17/2017 SUBJECTIVE: A 66-year-old female being seen for end-stage renal disease. Patient denies any nausea, vomiting or chest pain. PHYSICAL EXAMINATION: GENERAL: Patient is awake, alert. VITAL SIGNS: Afebrile, pulse 82, breathing 16, blood pressure 97/66. HEAD/NECK: Normocephalic. Atraumatic. EYES: EOMI. No deformity. EARS: Clear. No ulcers. NOSE: Intact. No lesions. MOUTH: Clear. No discharge. THROAT: Clear. No exudate. LUNGS: Clear. No crackles. CARDIAC: S1, S2. No rub. ABDOMEN: Benign. BS+. GENITALIA/RECTUM: Hernandez absent. BACK/EXTREMITIES: Edema 0+ Ulcer- NEUROLOGICAL: Alert and motor intact. SKIN: Rash- Bruise- LYMPHATICS: Edema- Ulcer- LABORATORY DATA: Show hemoglobin 8.6. ASSESSMENT AND RECOMMENDATIONS: 1. Chronic kidney disease, stage 6. We will plan hemodialysis today. 2. Hypertension, stable. 3. Anemia, stable. 4. Medications based on glomerular filtration rate are appropriate.
[2017-07-17] MEDS: Insulin Detemir 100 UNITS/ML 10 UNITS in Pre-Filled Syringe 1 EACH SC SCH (09:13)
[2017-07-17] MEDS: Sevelamer Carbonate 800 MG TAB PO SCH ×3 (09:13→16:53)
[2017-07-17] MEDS: Levothyroxine Sodium 100 MCG TAB PO SCH (09:13)
[2017-07-17] MEDS: Nystatin Powder 15 GM BOT TOP SCH ×2 (09:15→20:50)
[2017-07-17] MEDS: Famotidine 20 MG TAB PO SCH ×2 (09:23→09:28)
[2017-07-17 12:01] LABS: Vancomycin, Random 7.6 ug/mL (See Comment)
--- NOTE | 2017-07-17 12:48 | PDOC.PN ---
- Subjective Encounter Start Date: 07/17/17 Encounter Start Time: 12:48 -: non-verbal Subjective: nsg notes rev, david ovn, dtrs at bedside, at bedside. pt is sleeping -: but easily arousable. no new c/o - Objective Resuscitation Status: Resuscitation Status DNR:Do Not Resuscitate Vital Signs & Weight: Vital Signs (12 hours) Temp Pulse Resp BP Pulse Ox 07/17/17 08:00 98.0 F 77 24 H 129/76 100 Weight Admit Weight 203 lb 9.6 oz Weight 205 lb 7.533 oz I&O: 07/16/17 07/17/17 07/18/17 06:59 06:59 06:59 Intake Total 360 600 Output Total 100 Balance 360 500 Result Diagrams: 07/15/17 16:20 07/15/17 16:20 Additional Labs: Accuchecks 07/17/17 07/17/17 07/16/17 11:46 05:01 19:41 POC Glucose 94 108 136 H 07/16/17 16:48 POC Glucose 118 H Phys Exam - Physical Examination Constitutional: NAD HEENT: PERRLA, moist MMs, sclera anicteric Respiratory: no wheezing, no rales, no rhonchi, clear to auscultation bilateral limited anterior exam Cardiovascular: RRR, no significant murmur, no rub Gastrointestinal: soft, positive bowel sounds Dx/Plan - Plan * recurrent LE ulcerations with cellulitis * continue on abx as per ID * apprec ID c/s ESRD on HD * apprec nephrology c/s PVD * plan for b/l AKA in AM * apprec vasc c/s diet: renal activity: as gail dvt ppx Review of Systems - Medications/Allergies Allergies/Adverse Reactions: Allergies Allergy/AdvReac Type Severity Reaction Status Date / Time ciprofloxacin [From Cipro] Allergy Hives Verified 09/12/16 12:48 codeine Allergy tachycardia Verified 09/12/16 12:48 ,hallucinat ions Sulfa (Sulfonamide Allergy Hives Verified 09/12/16 12:48 Antibiotics) sulfamethoxazole Allergy Hives Verified 09/12/16 12:48 [From Bactrim] trimethoprim [From Bactrim] Allergy Hives Verified 09/12/16 12:48 Medications: Current Medications Acetaminophen (Tylenol) 650 mg PO Q4H PRN PRN Reason: Headache/Fever or Pain Last Admin: 07/11/17 17:59 Dose: 650 mg Hydrocodone Bitart/Acetaminophen ([place] 10/325) 1 tab PO Q6H PRN PRN Reason: Moderate to Severe Pain (6-10) Last Admin: 07/15/17 06:23 Dose: 1 tab Albuterol/Ipratropium (Duoneb) 3 ml IPPB Q6H PRN PRN Reason: SOB &/or Wheezing Alprazolam (Xanax) 0.5 mg PO ASDIR [facility] Last Admin: 07/12/17 13:43 Dose: 0.5 mg Amiodarone HCl (Cordarone) 200 mg PO HS [facility] Last Admin: 07/16/17 22:06 Dose: Not Given Aspirin (Aspirin Chewable) 81 mg PO DAILY [facility] Last Admin: 07/17/17 09:13 Dose: Not Given Dextrose/Water (Dextrose 50%) 25 gm SLOW IVP PRN PRN PRN Reason: Hypoglycemia Diphenhydramine HCl (Benadryl) 25 mg PO Q6H PRN PRN Reason: Itching Last Admin: 07/09/17 08:17 Dose: 25 mg Famotidine (Pepcid) 20 mg PO DAILY [facility] Last Admin: 07/17/17 09:28 Dose: Not Given Glucagon (Glucagon) 1 mg IM PRN PRN PRN Reason: Hypoglycemia Last Admin: 07/08/17 05:12 Dose: 1 mg Vancomycin HCl 1.25 gm/ Sodium (Chloride) 250 mls @ 166.667 mls/hr [facility] Vancomycin HCl 1 gm/ Device 200 mls @ 200 mls/hr [facility] Vancomycin HCl 750 mg/ Sodium (Chloride) 250 mls @ 250 mls/hr IVPB [facility] Last Admin: 07/10/17 16:50 Dose: 250 mls Vancomycin HCl 500 mg/ Sodium (Chloride) 100 mls @ 100 mls/hr IVPB [facility] Last Admin: 07/08/17 14:18 Dose: 100 mls Dextrose/Water (D5w) 1,000 mls @ 0 mls/hr IV .Q0M PRN; As Directed PRN Reason: Hypoglycemia Insulin Detemir 10 units/ (Miscellaneous Medication) 0.1 mls @ 0 mls/hr SC QAM [facility] Last Admin: 07/17/17 09:13 Dose: Not Given Piperacillin Sod/Tazobactam (Sod 2.25 gm/ Sodium Chloride) 100 mls @ 200 mls/ hr IVPB 0000,1200 [facility] Last Admin: 07/17/17 11:27 Dose: 100 mls Insulin Human Lispro (Humalog) 0 units SC .AGGRESSIVE SLIDING PRN PRN Reason: Aggressive Correctional Scale Last Admin: 07/13/17 11:46 Dose: 9 unit Levothyroxine Sodium (Synthroid) 100 mcg PO 0600 [facility] Last Admin: 07/17/17 09:13 Dose: Not Given Miscellaneous Medication (Pharmacy To Dose) 1 each IVPB PRN PRN PRN Reason: SSSI Hold Vancomycin For (Level >20) 0 each FS .AT DIALYSIS [facility] Nystatin (Mycostatin Powder) 0 gm TOP BID [facility] Last Admin: 07/16/17 22:06 Dose: 1 applic Oxycodone HCl (Oxycodone Ir) 5 mg PO Q4H PRN PRN Reason: Pain Last Admin: 07/16/17 22:09 Dose: 5 mg Sevelamer Carbonate (Renvela) 800 mg PO TID-WM [facility] Last Admin: 07/17/17 11:31 Dose: Not Given Simvastatin (Zocor) 5 mg PO HS [facility] Last Admin: 07/16/17 22:06 Dose: 5 mg Sodium Chloride (Flush - Normal Saline) 10 ml IVF Q12HR [facility] Last Admin: 07/17/17 11:28 Dose: 10 ml Sodium Chloride (Flush - Normal Saline) 10 ml IVF PRN PRN PRN Reason: Saline Flush
[2017-07-17] MEDS: Amiodarone 200 MG TAB PO SCH (20:49)
[2017-07-17] MEDS: Simvastatin 5 MG TAB PO SCH (20:49)
[2017-07-18] MEDS: Levothyroxine Sodium 100 MCG TAB PO SCH (06:05)
[2017-07-18] MEDS: Sevelamer Carbonate 800 MG TAB PO SCH ×2 (07:23→11:09)
[2017-07-18] MEDS: Insulin Detemir 100 UNITS/ML 10 UNITS in Pre-Filled Syringe 1 EACH SC SCH (07:23)
[2017-07-18] MEDS: Famotidine 20 MG TAB PO SCH (07:23)
[2017-07-18] MEDS ORDERED: PROPOFOL 200 MG/20 ML VIAL ONE (07:54)
[2017-07-18] MEDS ORDERED: ePHEDrine/0.9% NaCl/PF SYRINGE 50 mg/10 ml ONE (07:54)
[2017-07-18] MEDS ORDERED: Ondansetron HCl/PF 4 MG/2 ML Vial ONE (07:54)
[2017-07-18] MEDS ORDERED: Lidocaine 1% PF 5 ML VIAL ONE (07:54)
[2017-07-18] MEDS ORDERED: Glycopyrrolate 0.2 MG/ML 5 ML SYRINGE ONE (07:54)
[2017-07-18] MEDS ORDERED: PHENYLEPHRINE-NS 100 MCG/ML 10 ML SYRINGE ONE (07:54)
[2017-07-18] MEDS: Nystatin Powder 15 GM BOT TOP SCH (09:48)
[2017-07-18 10:42] VITALS: BMI 38.3
[2017-07-18 11:01] VITALS: BP 123/79; TEMP 98.1
--- NOTE | 2017-07-18 11:02 | PRG ---
DATE OF.DATE OF SERVICE: 07/18/2017 SUBJECTIVE: This is a 66-year-old female being seen for end-stage renal disease. The patient tolerated dialysis well. OBJECTIVE: GENERAL: Patient is awake and alert. VITAL SIGNS: Afebrile, pulse 92, breathing 16, blood pressure 107/60. GENERAL APPEARANCE AND MENTAL STATUS: Fair. HEAD/NECK: Normocephalic. Atraumatic. EYES: EOMI. No deformity. EARS: Clear. No ulcers. NOSE: Intact. No lesions. MOUTH: Clear. No discharge. THROAT: Clear. No exudate. LUNGS: Clear. No crackles. CARDIAC: S1, S2. No rub. ABDOMEN: Benign. BS+. GENITALIA/RECTUM: Hernandez absent. LABORATORY: Hemoglobin 8.6. ASSESSMENT AND PLAN: 1. Stage 6 chronic kidney disease. 2. Hypertension, stable. 3. Anemia, stable. 5. Medication based on glomerular filtration rate appropriate. MTDD
[2017-07-18] MEDS: Piperacillin/Tazobactam 2.25 GM in Sodium Chloride 0.9% 100 ML IVPB SCH (11:10)
--- NOTE | 2017-07-18 11:13 | PDOC.PN ---
- Subjective Encounter Start Date: 07/18/17 Encounter Start Time: 11:12 Subjective: plan is for AKA - Objective Resuscitation Status: Resuscitation Status DNR:Do Not Resuscitate Vital Signs & Weight: Vital Signs (12 hours) Temp Pulse Resp BP Pulse Ox 07/18/17 11:00 98.1 F 76 20 123/79 97 07/18/17 09:00 107/60 07/18/17 08:00 97.6 F 91 18 94 L 07/18/17 07:36 97.6 F 91 18 94 L 07/18/17 05:00 98.5 F 91 18 102/74 94 L 07/18/17 01:09 99.0 F 95 20 95 07/18/17 01:00 90/58 L 07/18/17 00:00 89/55 L Weight Admit Weight 203 lb 9.6 oz Weight 208 lb 5.389 oz I&O: 07/17/17 07/18/17 07/19/17 06:59 06:59 06:59 Intake Total 600 220 Output Total 100 1000 Balance 500 -780 Result Diagrams: 07/18/17 11:01 07/15/17 16:20 Additional Labs: Accuchecks 07/18/17 07/18/17 07/17/17 10:23 05:16 20:28 POC Glucose 110 101 110 07/17/17 07/17/17 17:43 11:46 POC Glucose 94 94 Phys Exam - Physical Examination Constitutional: NAD HEENT: PERRLA, moist MMs, sclera anicteric, TM's clear Neck: no nodes, no JVD, supple, full ROM Respiratory: no wheezing, no rales, no rhonchi, clear to auscultation bilateral Cardiovascular: RRR, no significant murmur, no rub Gastrointestinal: soft, non-tender, no distention, positive bowel sounds Dx/Plan (1) Cellulitis Code(s): L03.90 - CELLULITIS, UNSPECIFIED Status: Acute Comment: continue IV antibiotics, at discharge switch to Flagyl 250mg po TID for 3-4 weeks along with omnicef 300mg po BID for 3-4 weeks,. and vancomycin with HD. (2) ESRD (end stage renal disease) Code(s): N18.6 - END STAGE RENAL DISEASE Status: Acute (3) Leukocytosis Code(s): D72.829 - ELEVATED WHITE BLOOD CELL COUNT, UNSPECIFIED Status: Acute (4) Sepsis Code(s): A41.9 - SEPSIS, UNSPECIFIED ORGANISM Status: Acute - Plan plan discussed w/ family, continue antibiotics, PT/OT, social work supervisor, respiratory therapy Bilateral AKA planned for today -: Appreciate other consultants inputs * .
[2017-07-18] MEDS ORDERED: oxyCODONE 5 MG TAB PO PRN (11:16)
[2017-07-18 11:19] LABS: Hemoglobin 10.3 g/dL (12.0-16.0); Mean Corpuscular HGB CONC 31.8 g/dL (32.0-36.0); Mean Corpuscular Hemoglobin 29.2 pg (27.0-31.0); Mean Corpuscular Volume 91.7 fl (81.0-99.0); Mean Platelet Volume 9.1 fL (7.4-10.4); Platelet Count 67 thou/uL (130-400); RBC Distribution Width 17.5 % (11.5-14.5); Red Blood Cell (RBC) Count 3.54 mill/uL (4.20-5.40); White Blood Cell (WBC) Count 25.5 thou/uL (4.8-10.8)
[2017-07-18 11:28] LABS: Lymphocytes 10 % (21-51); MDiff Complete? YES; Monocytes 7 % (0-10); Neutrophil 83 % (42-75); PLT Morphology Comment Appears Decreased; RBC Morphology Normal
[2017-07-18] MEDS ORDERED: Fentanyl 100 MCG/2 ML VIAL ONE (11:56)
[2017-07-18] MEDS ORDERED: Fentanyl 250 MCG/5 ML VIAL ONE (12:08)
--- NOTE | 2017-07-18 15:31 | OP ---
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 POSTOPERATIVE DIAGNOSIS: Gangrene of bilateral legs with nonreconstructable peripheral vascular dise ase. PROCEDURES: 1. Left above-knee amputation. 2. Right above-knee amputation. SURGEON: Gerardo Vera M.D. ANESTHESIA: General endotracheal. ESTIMATED BLOOD LOSS: 150 mL DRAINS: None. SPECIMENS: Bilateral legs. DESCRIPTION OF PROCEDURE: After consent was obtained, the patient was brought to the operating room and placed supine on the operating table. Appropriate anesthetic monitor was placed and general endo tracheal anesthesia induced. Legs were prepped and draped in usual sterile fashion. Left leg was ap proached first. Skin incision was marked for a fish mouth incision. Incision was extended to the fa scia. The anterior quadriceps muscles were divided with electrocautery down to the level of the femu r. The femoral periosteum was elevated. Femur was divided with Gigli saw. The popliteal artery and vein were divided between ties. The posterior part of the amputation was completed through the hams trings with electrocautery. Hemostasis was ensured. Wounds were irrigated. Fascia was reapproximat ed with 0 Vicryl suture. A 2-0 Vicryl layer was then placed in the subcutaneous tissue and skin clos ed with clips. Sterile dressings and an Fausto wrap were then placed. Right leg was then approached in similar fashion with fish mouth incision extended to the fascia. Qu adriceps muscles were divided with electrocautery. Periosteum was elevated off the femur. Femur was divided with Gigli saw. The popliteal artery and vein were divided between ties. The posterior por tion of the amputation was completed through the hamstrings electrocautery. Hemostasis was ensured. Wounds irrigated. Fascia was reapproximated with 0 Vicryl suture. 2-0 Vicryl layer was placed and subcutaneous tissue. Skin was reapproximated with clips. An Fausto bandage dressing was then placed. The patient was awakened, extubated, and transferred to the recovery room in stable condition.
--- NOTE | 2017-07-19 11:39 | PDOC.EVN ---
Event Note - Event Note Event Note: Attention was drawn to the patient after Bilateral AKA in the recovery room where patient was noted to be having agonal breathing unable to get a decent vital sign but pulse was still present-I discussed with the patients and daughter who makes this patient for the patient as regards to the resuscitation status of the patient.Their consensus decision was not to do any anything and let her go that she has suffered a lot and dont want to see her in no much more pain.I consulted the paliative care team and handed over the care to them
== END 2017-07-18 15:10 | disposition expired | DRG 853 ==
LOC: ERS 15:34 → T4-A 19:45
PROVIDERS: ADMIT Hospitalist; ATTEND Hospitalist
PROC: 05JY3ZZ Inspection of Upper Vein, Percutaneous Approach (ICD-10-PCS; 2017-07-06)
PROC: 06JY3ZZ Inspection of Lower Vein, Percutaneous Approach (ICD-10-PCS; 2017-07-06)
PROC: 5A1D70Z Performance of Urinary Filtration, Intermittent, Less than 6 Hours Per Day (ICD-10-PCS; 2017-07-07)
PROC: 0Y6D0Z3 Detachment at Left Upper Leg, Low, Open Approach (ICD-10-PCS; principal; 2017-07-18)
PROC: 0Y6C0Z3 Detachment at Right Upper Leg, Low, Open Approach (ICD-10-PCS; 2017-07-18)
DX: A41.9 Sepsis, unspecified organism (principal); J96.01 Acute respiratory failure with hypoxia; R65.21 Severe sepsis with septic shock; E11.52 Type 2 diabetes mellitus with diabetic peripheral angiopathy with gangrene; E11.22 Type 2 diabetes mellitus with diabetic chronic kidney disease; D69.6 Thrombocytopenia, unspecified; E11.622 Type 2 diabetes mellitus with other skin ulcer; N18.6 End stage renal disease; L97.418 Non-pressure chronic ulcer of right heel and midfoot with other specified severity; L03.116 Cellulitis of left lower limb; L03.115 Cellulitis of right lower limb; G45.9 Transient cerebral ischemic attack, unspecified; L97.428 Non-pressure chronic ulcer of left heel and midfoot with other specified severity; L97.328 Non-pressure chronic ulcer of left ankle with other specified severity; L97.228 Non-pressure chronic ulcer of left calf with other specified severity; Z51.5 Encounter for palliative care; Z79.4 Long term (current) use of insulin; E03.9 Hypothyroidism, unspecified; Z99.2 Dependence on renal dialysis; I11.0 Hypertensive heart disease with heart failure; Z95.810 Presence of automatic (implantable) cardiac defibrillator; I25.5 Ischemic cardiomyopathy; E66.01 Morbid (severe) obesity due to excess calories; Z68.38 Body mass index [BMI] 38.0-38.9, adult; E87.6 Hypokalemia; E11.628 Type 2 diabetes mellitus with other skin complications; E11.649 Type 2 diabetes mellitus with hypoglycemia without coma; Z66 Do not resuscitate; R29.810 Facial weakness; D64.9 Anemia, unspecified; R13.10 Dysphagia, unspecified
CPT/HCPCS: 36415; 36416; 51701; 70450; 71045; 80048; 80053; 80202; 81003; 81015; 82010; 82140; 83036; 83735; 84100; 84145; 84439; 84443; 85007; 85025; 85027; 87040; 87340; 87804; 88307; 88311; 90935; 93005; 93010; 93306; 93880; 93923; 96365; 96372; 96375; A4216; A4353; C1769; G0257; G8996-GN-CK; G8997-GN-CI; J0131; J1610; J1644; J1650; J1815; J2001; J2270; J2405; J2543; J2704; J3010; J3370; J7050; J7620